=== PATIENT | male | born 1940 | race Caucasian/White ===

== ENCOUNTER 2016-11-08 03:39 | Inpatient (IN) | payer MEDICARE, BC ==
[2016-11-08] MEDS ORDERED: ACETAMINOPHEN 325 MG TABLET PO ONE (04:08)
[2016-11-08 04:17] LABS: BLOOD UREA NITROGEN 19 mg/dL (9-20); CALCIUM 9.1 mg/dL (8.4-10.2); CHLORIDE 99 mmol/L (98-107); CREATININE 1.1 mg/dL (0.7-1.3); EST GLOMERULAR FILTRATION RATE > 60 mL/min; GLUCOSE 109 mg/dL (70-100); POTASSIUM 3.9 mmol/L (3.5-5.1); SODIUM 135 mmol/L (137-145)
[2016-11-08] MEDS ORDERED: AZITHROMYCIN 250 MG TABLET PO ONE ×2 (04:18→04:45)
[2016-11-08] MEDS ORDERED: CEFTRIAXONE SODIUM 1,000 MG/10 ML VIAL ONE (04:18)
[2016-11-08] MEDS ORDERED: IPRATROPIUM/ALBUTEROL 0.5/3 MG 3 ML AMPUL.NEB INHALATION ONE (04:18)
[2016-11-08] MEDS ORDERED: NORMAL SALINE MINI-BAG+ 100 ML IV ONE (04:19)
[2016-11-08 04:21] LABS: BAND% (Manual) 17 % (0.0-1.0); HEMATOCRIT 48.6 % (42.0-54.0); HEMOGLOBIN 16.6 g/dL (14.0-18.0); MEAN CELL VOLUME 89.4 fL (84.0-102.0); MEAN CORPUS. HGB CONCENTRATION 34.1 g/dL (32.0-36.0); MEAN CORPUSCULAR HEMOGLOBIN 30.4 pg (29.0-35.0); MEAN PLATELET VOLUME 7.9 fL (7.4-10.4); NEUTROPHIL % (Manual) 64 % (54.0-75.0); PLATELET COUNT 292 X 10^3uL (130-440); RED BLOOD COUNT 5.44 X 10^6uL (4.20-6.10)
[2016-11-08 04:22] LABS: INFLUENZA A/B INF A & B NEGATIVE; LYMPHOCYTE % (Manual) 10 % (20.0-40.0); PLATELET ESTIMATE ADEQUATE
[2016-11-08] MEDS ORDERED: HOME MEDICATION LIST NEEDED 1 EA EACH MISC ONE (04:45)
[2016-11-08] MEDS ORDERED: FAMOTIDINE IN SALINE, ISO-OSM 50 ML IV ONE (04:49)
[2016-11-08] MEDS ORDERED: IPRATROPIUM/ALBUTEROL 0.5/3 MG 3 ML AMPUL.NEB INHALATION SCH (05:00)
--- NOTE | 2016-11-08 05:21 | ER PHYSICIAN DOCUMENTATION ---
Physician Documentation [facility] Name:Cliff Jain Age:76 yrs Sex:Male :1940 Arrival Date:11/08/2016 Time:03:39 Bed4 Private MD:Emiliano Ricketts ED, Scott Disposition: 11/08/16 04:49 Admit ordered for Emiliano Ricketts. Preliminary diagnosis is Hypoxia. - Bed requested for Medical/Surgical. - Condition is Serious. - Problem is new. - Symptoms have improved. 23 HR OBS No HPI: 11/08 04:12 This 76 yrs old Male presents to ER via EMS with complaints of Fever. sc 04:12 The patient reports fever, not measured (subjective). Onset: The symptom(s)/episode sc began/occurred 3 day(s) ago. Associated signs and symptoms: Pertinent positives: runny nose, sinus congestion, Pertinent negatives: altered mental status, chest pain. Severity of symptoms: At their worst the symptoms were moderate. too weak to get out of bed. Historical: - Allergies: SULFA (SULFONAMIDES); - Home Meds: 1. allopurinol 300 mg oral tab 1 tab once daily 2. Advair Diskus 250-50 mcg/dose inhalation dsdv 1 puff 2 times per day approximately 12 hours apart 3. Albuterol Inhl 4. ipratropium 5. Zantac Oral 6. lorazepam 1 mg oral tab as needed 7. hydrocodone-acetaminophen 10-325 mg oral tab 1 tab every 6 hours as needed for pain 8. prednisone 5 mg oral tab 2 tabs once daily 9. prolia 10. [place] 3 Fish Oil oral cap 11. multivitamin oral 12. Glucosamine oral 13. Vitamin E Oral 14. Mucinex oral - PMHx: GOUT; allergies; ASTHMA; ANXIETY; - PSHx: Cholecysectomy; back; - Tetanus: < 10 years. - Ebola Screening: : No symptoms or risks identified at this time. . - Immunization history: Flu Vaccine < 1 year. - Social history: Smoking status: Patient states former smoker of tobacco. ROS: 04:13 Eyes: Negative for injury, pain, redness, and discharge. sc Neck: Negative for injury, pain, and swelling. Cardiovascular: Negative for chest pain, palpitations, and edema. Respiratory: Negative for shortness of breath, cough, wheezing, and pleuritic chest pain. Abdomen/GI: Negative for abdominal pain, nausea, vomiting, diarrhea, and constipation. Back: Negative for injury and pain. MS/Extremity: Negative for injury and deformity. Skin: Negative for injury, rash, and discoloration. 04:13 Neuro: Negative for headache, weakness, numbness, tingling, and seizure. sc 04:13 Constitutional: Positive for body aches, chills, fatigue, fever. 04:13 ENT: Positive for sinus congestion. Exam: Head/Face: Normocephalic, atraumatic. Eyes: Pupils equal round and reactive to light, extra-ocular motions intact. Lids and lashes normal. Conjunctiva and sclera are non-icteric and not injected. Cornea within normal limits. Periorbital areas with no swelling, redness, or edema. Neck: Trachea midline, no thyromegaly or masses palpated, and no cervical lymphadenopathy. Supple, full range of motion without nuchal rigidity, or vertebral point tenderness. No meningismus. Chest/axilla: Normal chest wall appearance and motion. Nontender with no deformity. No lesions are appreciated. Cardiovascular: Regular rate and rhythm with a normal S1 and S2. No gallops, murmurs, or rubs. Normal PMI, no JVD. No pulse deficits. Abdomen/GI: Soft, non-tender, with normal bowel sounds. No distension or tympany. No guarding or rebound. No evidence of tenderness throughout. Back: No spinal tenderness. No costovertebral tenderness. Full range of motion. Skin: Warm, dry with normal turgor. Normal color with no rashes, no lesions, and no evidence of cellulitis. MS/ Extremity: Pulses equal, no cyanosis. Neurovascular intact. Full, normal range of motion, negative Homans's, calves equal bilaterally. 04:13 Neuro: Awake and alert, GCS 15, oriented to person, place, time, and situation. nj Cranial nerves II-XII grossly intact. Motor strength 5/5 in all extremities. Sensory grossly intact. Cerebellar exam normal. Normal gait. 04:13 Constitutional: The patient appears alert, awake, lethargic. 04:13 ENT: Nose: nasal drainage, that is clear. 04:13 Respiratory: mild respiratory distress is noted, Respirations: tachypnea, that is mild, Breath sounds: rhonchi, that are mild, are scattered. Vital Signs: 03:56 BP 135 / 79; Pulse 114; Resp 24; Temp 101.7; Pulse Ox 85% on 5 lpm NC; Weight 77.11 kg lpr (R); Height 5 ft. 11 in. (180.34 cm); Pain 6/10; 04:29 BP 124 / 68; Pulse 107; Pulse Ox 92% on 5% Simple Mask; tg 03:56 Body Mass Index 23.71 (77.11 kg, 180.34 cm) lpr MDM: 03:47 Patient medically screened. nj 04:14 Differential diagnosis: viral Infection, bacterial infection, URI, bronchitis, sc pneumonia UTI. Data reviewed: vital signs, nurses notes, old medical records, lab test result(s), radiologic studies, and as a result, I will admit patient, administer antibiotics Rocephin, Zithromax, administer IV fluids. Counseling: I had a detailed discussion with the patient and/or guardian regarding: the historical points, exam findings, and any diagnostic results supporting the discharge/admit diagnosis, lab results, radiology results, the need for further work-up and treatment in the hospital. Medication response: The patient's symptoms have improved. 04:47 Physician consultation: Sandra Magallanes MD was called at 04:47, was contacted at nj 04:47, regarding admission, to the floor, and will see patient in inpatient room, shortly. 11/08 04:19 Order name: BASIC METABOLIC PANEL; Complete Time: 04:36 EDMS 11/08 04:34 Interpretation: Normal. nj 11/08 04:21 Order name: LACTATE; Complete Time: 04:36 EDMS 11/08 04:36 Interpretation: Normal. nj 11/08 04:21 Order name: CBC WITHOUT A DIFFERENTIAL; Complete Time: 04:36 EDMS 11/08 04:36 Interpretation: Abnormal: WHITE BLOOD COUNT 23.0. nj 11/08 04:23 Order name: MANUAL DIFFERENTIAL; Complete Time: 04:36 EDMS 11/08 04:36 Interpretation: Abnormal: BAND% (Manual) 17. nj 11/08 04:23 Order name: INFLUENZA A/B; Complete Time: 04:36 EDMS 11/08 04:36 Interpretation: Normal. nj 11/08 04:27 Order name: BNP,NT-PRO; Complete Time: 04:36 EDMS 11/08 04:36 Interpretation: Normal. nj 11/08 03:55 Order name: I & O nj 11/08 03:55 Order name: Oxygen; Complete Time: 04:02 nj 11/08 03:55 Order name: Place Patient On Monitor; Complete Time: 04:02 nj 11/08 03:55 Order name: Pulse Ox Continuous; Complete Time: 04:02 nj 11/08 03:55 Order name: Urine Dip sc Dispensed Medications: 03:55 Drug: NS 0.9% 1000 ml; Route: IV; Rate: bolus; Site: left antecubital; fc 05:18 Follow up: IV Status: Completed infusion; IV Intake: 1000ml tg 04:01 Drug: Acetaminophen 975 mg; Route: PO; lpr 04:45 Follow up: Response: No adverse reaction tg 04:13 Drug: DuoNeb (Albuterol 2.5 mg, Atrovent 0.5 mg); 3 ml; Route: Nebulizer; lpr 04:44 Follow up: Response: No adverse reaction tg 04:13 Drug: azithromycin 500 mg; Route: PO; lpr 04:45 Follow up: Response: No adverse reaction tg 04:13 Drug: Rocephin 1 grams; Route: IVPB; Site: left antecubital; lpr 05:20 Follow up: IV Status: Completed infusion; IV Intake: 100ml tg 04:40 Drug: Pepcid 20 mg; Route: IVPB; Site: left antecubital; fc 05:18 Follow up: IV Status: Completed infusion; IV Intake: 50ml tg Signatures: Cory Corona RN RN tg To Mancuso MD MD nj Gracie Duke RN RN lpr nikki perez fc
--- NOTE | 2016-11-08 05:21 | ER NURSING DOCUMENTATION ---
Nurse's Notes [facility] Name:Cliff Jain Age:76 yrs Sex:Male :1940 Arrival Date:11/08/2016 Time:03:39 Bed4 Private MD:Emiliano Ricketts Diagnosis:Hypoxia Presentation: 11/08 03:52 Presenting complaint: Patient states: sinus drainage and congestion X 3 days. Too weak lpr to get up out of chair tonight. Temperature of 102.7 for EMS. 75% RA sat for EMS. C/O chronic lower back pain. Care prior to arrival: IV initiated. gauge and site 18 gauge RAC Labs. 03:52 Acuity: LATONYA 2 lpr 03:52 Method Of Arrival: EMS: 410 lpr 03:54 Transition of care: Home. lpr Triage Assessment: 03:54 General: Appears uncomfortable, Behavior is cooperative. EENT: Nares with drainage lpr noted. Neuro: Level of Consciousness is awake, alert, obeys commands, Oriented to person, place, time, event. Cardiovascular: Rhythm is sinus tachycardia. Respiratory: Airway is patent Respiratory effort is even, Respiratory pattern is tachypnea. GI: No deficits noted. : No deficits noted. Derm: Skin is intact, is healthy with good turgor, Skin is pink, warm & dry. Musculoskeletal: Circulation, motion, and sensation intact Capillary refill < 3 seconds. 04:03 Pain: Complains of pain in low back area. lpr Historical: - Allergies: SULFA (SULFONAMIDES); - Home Meds: 1. allopurinol 300 mg oral tab 1 tab once daily 2. Advair Diskus 250-50 mcg/dose inhalation dsdv 1 puff 2 times per day approximately 12 hours apart 3. Albuterol Inhl 4. ipratropium 5. Zantac Oral 6. lorazepam 1 mg oral tab as needed 7. hydrocodone-acetaminophen 10-325 mg oral tab 1 tab every 6 hours as needed for pain 8. prednisone 5 mg oral tab 2 tabs once daily 9. prolia 10. [place] 3 Fish Oil oral cap 11. multivitamin oral 12. Glucosamine oral 13. Vitamin E Oral 14. Mucinex oral - PMHx: GOUT; allergies; ASTHMA; ANXIETY; - PSHx: Cholecysectomy; back; - Tetanus: < 10 years. - Ebola Screening: : No symptoms or risks identified at this time. . - Immunization history: Flu Vaccine < 1 year. - Social history: Smoking status: Patient states former smoker of tobacco. Screenin:04 Infectious Disease Risk None. Abuse screen: Denies threats or abuse. Nutritional lpr screening: No deficits noted. Assessment: 04:04 See Triage Assessment done by same RN. lpr Vital Signs: 03:56 BP 135 / 79; Pulse 114; Resp 24; Temp 101.7; Pulse Ox 85% on 5 lpm NC; Weight 77.11 kg lpr (R); Height 5 ft. 11 in. (180.34 cm); Pain 6/10; 04:29 BP 124 / 68; Pulse 107; Pulse Ox 92% on 5% Simple Mask; tg 03:56 Body Mass Index 23.71 (77.11 kg, 180.34 cm) lpr ED Course: 03:42 Inserted saline lock: 18 gauge in left antecubital area. lpr 03:43 Patient arrived in ED. ma1 03:43 Emiliano Ricketts MD is Private Physician. ma1 03:45 First set of blood cultures drawn Second set of blood cultures drawn by millicent Olsen RN. 03:47 To Mancuso MD is Attending Physician. sc 03:52 Port Xray Completed. jane 03:53 Triage completed. lpr 04:04 Valuables Remains with patient Patient has correct armband on for positive lpr identification. Bed in low position. Call light in reach. Side rails up X2. color television console monitor on. Pulse ox on. NIBP on. 04:13 Report given to Ori Corona RN. lpr 04:28 Cory Corona RN is Primary Nurse. tg 04:28 Report received from IRVIN Bowman. tg 04:29 Oxygen Oxygen administration via face mask @ 6L/min. tg 04:47 Emiliano Ricketts MD is Admitting Physician. sc Administered Medications: 03:55 Drug: NS 0.9% 1000 ml; Route: IV; Rate: bolus; Site: left antecubital; fc 05:18 Follow up: IV Status: Completed infusion; IV Intake: 1000ml tg 04:01 Drug: Acetaminophen 975 mg; Route: PO; lpr 04:45 Follow up: Response: No adverse reaction tg 04:13 Drug: DuoNeb (Albuterol 2.5 mg, Atrovent 0.5 mg); 3 ml; Route: Nebulizer; lpr 04:44 Follow up: Response: No adverse reaction tg 04:13 Drug: azithromycin 500 mg; Route: PO; lpr 04:45 Follow up: Response: No adverse reaction tg 04:13 Drug: Rocephin 1 grams; Route: IVPB; Site: left antecubital; lpr 05:20 Follow up: IV Status: Completed infusion; IV Intake: 100ml tg 04:40 Drug: Pepcid 20 mg; Route: IVPB; Site: left antecubital; fc 05:18 Follow up: IV Status: Completed infusion; IV Intake: 50ml tg Intake: 05:18 IV: 1000ml; Total: 1000ml. tg 05:18 IV: 50ml; Total: 1050ml. tg 05:20 IV: 100ml; Total: 1150ml. tg Outcome: 04:49 Decision to Admit by Provider. al 05:18 Admitted to Med/surg accompanied by nurse, family with patient, via stretcher, with tg oxygen. 05:18 Condition: improved 05:18 Discharge Assessment: Patient awake, alert and oriented x 3. No cognitive and/or functional deficits noted. Patient verbalized understanding of disposition instructions. 05:18 Instructed on need to admit 05:20 Patient left the ED. tg Signatures: Cory Corona RN RN tg To Mancuso MD MD sc Roberts, Leslie, RN RN lpr Abbott, Laura lea collins, floyd fc Addison, Melissa ma1
[2016-11-08] MEDS ORDERED: O2 HUMIDIFIER 650 ML BOTTLE INHALATION ONE (05:50)
[2016-11-08] MEDS: CEFTRIAXONE SODIUM 1,000 MG in NORMAL SALINE MINI-BAG+ 100 ML IV SCH (05:51)
[2016-11-08] MEDS ORDERED: HYDROcodone/APAP 10/325 MG 1 TAB TABLET PO ONE (06:00)
[2016-11-08 06:09] LABS: URINE RBC NONE SEEN (0-5/hpf); URINE SQUAMOUS EPITHELIAL CELL NONE SEEN (<= 15/hpf)
[2016-11-08 06:33] LABS: URINE APPEARANCE CLEAR; URINE COLOR AMBER; URINE GLUCOSE NORMAL (NEGATIVE); URINE KETONE 10mg/dL (1+) (NEGATIVE); URINE LEUKOCYTE ESTERASE NEGATIVE (NEGATIVE); URINE NITRITE NEGATIVE (NEGATIVE); URINE PROTEIN 30mg/dL (1+) (NEG - TRACE); URINE SPECIFIC GRAVITY 1.025 (0.001-1.035)
[2016-11-08 06:34] LABS: URINE BACTERIA <10 ORGANISMS/hpf (<10/hpf); URINE BILIRUBIN 0.5 mg/100ml (1+) (NEGATIVE); URINE BLOOD 10 Ery/uL (1+) (NEGATIVE); URINE MUCUS UP TO 25%/lpf (Up to 25%); URINE UROBILINOGEN 0.2mg/dL (Normal) (NEG-1mg/dL)
--- NOTE | 2016-11-08 08:46 | RADIOLOGY REPORT ---
A limited single portable view of the chest is compared with prior film dated 12/2013. The cardiac silhouette is stable. 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 The pulmonary vasculature otherwise appears unremarkable. No infiltrate, fluid or pneumothorax is seen. IMPRESSION: Stable chronic changes. No acute cardiopulmonary abnormality is identified. MTDD
[2016-11-08] MEDS ORDERED: RANITIDINE HCL 75 MG PO PRN (10:33)
[2016-11-08] MEDS ORDERED: NON-FORMULARY MEDICATION (Cetirizine Hcl [Zyrtec] 10 MG) PO SCH (10:45)
[2016-11-08] MEDS ORDERED: NON-FORMULARY MEDICATION (Guaifenesin [Mucinex] 1,200 MG) PO SCH (10:45)
[2016-11-08] MEDS ORDERED: FLUTICASONE/SALMETEROL 250/50 14 INH DISK INHALATION SCH ×2 (10:45→21:00)
[2016-11-08] MEDS ORDERED: PANTOPRAZOLE 40 MG TABLET PO PRN (11:03)
[2016-11-08] MEDS: IPRATROPIUM/ALBUTEROL 0.5/3 MG 3 ML AMPUL.NEB INHALATION SCH ×4 (11:08→23:25)
[2016-11-08] MEDS ORDERED: FLUTICASONE/SALMETEROL 250/50 14 INH DISK INHALATION ONE (11:33)
[2016-11-08] MEDS: METHYLPREDNISOLONE SOD 125 MG/2 ML VIAL IV SCH ×3 (11:42→23:25)
[2016-11-08] MEDS: CALCIUM CARBONATE 500 MG TABLET PO SCH (11:44)
[2016-11-08] MEDS: FEXOFENADINE HCL 180 MG TABLET PO SCH (11:47)
[2016-11-08] MEDS: GUAIFENESIN ER 600 MG TABLET PO SCH ×2 (11:48→20:09)
[2016-11-08] MEDS: ALLOPURINOL 300 MG TABLET PO SCH (11:48)
[2016-11-08] MEDS ORDERED: BENZONATATE 100 MG CAPSULE PO PRN (13:16)
[2016-11-08] MEDS: FLUTICASONE/SALMETEROL 250/50 14 INH DISK INHALATION SCH ×2 (14:19→20:08)
--- NOTE | 2016-11-08 15:23 | HISTORY & PHYSICAL ---
DATE OF ADMISSION: 11/08/16 CHIEF COMPLAINT: Cough. HISTORY OF PRESENT ILLNESS: This is a 76-year-old male who has a several-week history of URI symptoms, that worsened on 11/02/16. Symptoms have progressively worsened, since then, especially last night. At this time he is complaining of fevers and chills, sinus pain and pressure, frontal sinus headache, yellow green coryza, postnasal drainage, productive cough of yellow- green phlegm, shortness of breath, generalized weakness and postnasal drainage. He actually had a fall where he was unable to get up. No sore throat or wheezing. ALLERGIES: Boniva, Reclast, Fosamax. MEDICATIONS Glucosamine chondroitin 1 tablet p.o. b.i.d. Multivitamin 1 tablet p.o. q.day. Fish oil 1000 mg p.o. 3 times per week. Vitamin E 100 IU 3 times per week. Prednisone 10 mg p.o. q.day. Allopurinol 300 mg 5 times per week. Calcium 500 mg 1 tablet p.o. q.day. Zyrtec 10 mg p.o. q.day. Advair 250/50 inhaler, 1 puff b.i.d. Guaifenesin 600 mg p.o. b.i.d. Zebulon 10/325 mg one tablet p.o. b.i.d. p.r.n. Lorazepam 1 mg p.o. q.h.s. Ranitidine 75 mg p.o. b.i.d. PAST MEDICAL HISTORY 1. 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 2. Actinic keratoses. 3. Allergic rhinitis. 4. Generalized osteoarthritis. 5. Asthma. 6. Chronic back pain related to an L3-L4 fusion and not considered a surgical candidate and now with chronic pain syndrome. 7. Chronic sinusitis for which he is on prednisone. 8. CVA with cognitive deficits. Difficulty with multitasking and short-term memory. 9. ED. 10. 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 Bender. 11. Gout. 12. Hypertension. 13. Hyperlipidemia. 14. Insomnia. 15. Osteoporosis of hip and wrist. 16. Right rotator cuff tear. 17. 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 18. Right biceps tendon tear. 19. Cholecystectomy in 1979. 20. Umbilical herniorrhaphy. 21. Rhinoplasty. 22. L3-L4 spine fusion in 2012. SOCIAL HISTORY: , 4 children. Retired oil company management. Quit smoking in 1988. FAMILY HISTORY: Brother with diabetes. Father with CVA and arthritis. Mother with stomach cancer and diabetes. Sister with COPD. REVIEW OF SYSTEMS: No heart, emphysema, kidney, liver, diabetes, thyroid, seizures, peptic ulcer disease, new skin or bleeding disorders. No nocturia. PREVENTIVE HEALTH: TDAP in 2011. Pneumovax in 2009. Prevnar in 2014. Gets annual flu shot. Zostavax in 2007. PHYSICAL EXAMINATION VITAL SIGNS: Blood pressure 135/79, pulse 114, respiratory rate 24, temp 101.7 , pulse oximetry 85% on oxygen at 5 liters per minute by nasal prongs which arjun to 92% on oxygen 5 liters per minute by face mask. GENERAL: Well-developed, well-nourished male, no respiratory distress at the time of my visit. Alert and oriented times 3. HEENT: EOMI. PERRL. Fundi difficult to visualize. Normal conjunctivae. No coryza. Pharynx not injected. NECK: No adenopathy, thyromegaly or bruits. Supple. CHEST: Diminished breath sounds with bibasilar rales. No rhonchi or wheezes. COR: RRR without murmurs, gallops, rubs or clicks. No jugular venous distention. No ectopy. ABDOMEN: Soft, nontender. No hepatosplenomegaly. No masses. No bruits. Bowel sounds present. LOWER EXTREMITIES: No edema, pulses present. NEUROLOGIC: Cranial nerves 2 through 12 are intact. Motor 5/5. Sensory intact. CHEST X-RAY: Normal, reviewed with Radiology. LABORATORY STUDIES: WBC 23.0 with 64 segs, 17 bands, 10 lymphs, 9 atypical lymphs, H&H 16.6/48.6, platelets 292,000. Sodium 135, potassium 3.9, chloride 99, CO2 25, BUN 19, creatinine 1.1, glucose 109, lactic acid 1.6, calcium 9.1. ProBNP 235. Quick flu negative. Urinalysis: Specific gravity 1.025, 1+ protein, 1+ ketones, 1+ blood, 1+ bilirubin, otherwise negative. Micro shows 5- 10 WBCs, no RBCs, otherwise negative. ASSESSMENT 1. Clinical pneumonia with bibasilar rales, productive cough, fevers, leukocytosis, and profound hypoxia. 2. Acute sinusitis. 3. Profound hypoxia. 4. Asthma, no evidence of exacerbation at this time. PLAN 1. Blood cultures, sputum cultures and urine cultures pending. 2. Repeat lab work in a.m. 3. Full code status. 4. Oxygen at 5 liters per minute by nasal prongs which has been titrated down to 3 liters per minute at this time. 5. DuoNeb updrafts q.4h. 6. Solu-Medrol 60 mg IV q.6h. 7. Mucinex 1200 mg p.o. b.i.d. 8. Rocephin 1 g IV q.24 hours and Z-Zach. MTDD
[2016-11-08] MEDS: HYDROcodone/APAP 10/325 MG 1 TAB TABLET PO PRN (17:51)
[2016-11-08] MEDS ORDERED: GUAIFENESIN ER 600 MG TABLET PO SCH (21:00)
[2016-11-08] MEDS ORDERED: LORazepam 1 MG TABLET PO SCH (21:00)
[2016-11-09] MEDS ORDERED: FLUTICASONE/SALMETEROL 250/50 14 INH DISK INHALATION SCH
[2016-11-09] MEDS: IPRATROPIUM/ALBUTEROL 0.5/3 MG 3 ML AMPUL.NEB INHALATION SCH ×3 (05:33→11:44)
[2016-11-09] MEDS: CEFTRIAXONE SODIUM 1,000 MG in NORMAL SALINE MINI-BAG+ 100 ML IV SCH (05:34)
[2016-11-09] MEDS: METHYLPREDNISOLONE SOD 125 MG/2 ML VIAL IV SCH ×2 (05:34→10:42)
[2016-11-09] MEDS: HYDROcodone/APAP 10/325 MG 1 TAB TABLET PO PRN (06:15)
[2016-11-09 06:29] LABS: HEMATOCRIT 42.1 % (42.0-54.0); MEAN CELL VOLUME 89.9 fL (80.0-100.0); MEAN CORPUS. HGB CONCENTRATION 33.2 g/dL (32.0-36.0); MEAN CORPUSCULAR HEMOGLOBIN 29.8 pg (29.0-35.0); MEAN PLATELET VOLUME 7.8 fL (7.4-10.4); PLATELET COUNT 273 X 10^3uL (130-440); RED BLOOD COUNT 4.69 X 10^6uL (4.20-6.10); RED CELL DISTRIBUTION WIDTH 12.9 % (11.5-14.5); WHITE BLOOD COUNT 15.6 X 10^3uL (3.9-10.7)
[2016-11-09] MEDS ORDERED: PANTOPRAZOLE 40 MG TABLET PO SCH (06:30)
[2016-11-09 06:34] LABS: A/G RATIO 1.3; ALBUMIN 3.6 g/dL (3.5-5.0); ALKALINE PHOSPHATASE 78 U/L (38-126); ALT 45 U/L (21-72); AST 31 U/L (17-59); BLOOD UREA NITROGEN 21 mg/dL (9-20); CALCIUM 9.1 mg/dL (8.4-10.2); CHLORIDE 106 mmol/L (98-107); CREATININE 0.9 mg/dL (0.7-1.3); EST GLOMERULAR FILTRATION RATE > 60 mL/min; SODIUM 139 mmol/L (137-145); TOTAL PROTEIN 6.4 g/dL (6.3-8.2)
[2016-11-09 06:40] LABS: GLUCOSE 218 mg/dL (70-100)
[2016-11-09 07:14] LABS: BAND% (Manual) 14 % (0.0-1.0); BASOPHIL % (Manual) 0 % (0.0-2.0); EOSINOPHIL % (Manual) 0 % (0.0-6.0); LYMPHOCYTE % (Manual) 2 % (20.0-40.0); METAMYELOCYTE % (Manual) 0 % (0); MONOCYTE % (Manual) 0 % (2.0-10.0); MYELOCYTE % (Manual) 0 % (0); NEUTROPHIL % (Manual) 84 % (54.0-75.0); PROMYELOCYTE % (Manual) 0 % (0)
[2016-11-09 07:16] LABS: NUCLEATED RED BLOOD CELL 0 #/100WBC (0-0); PLASMA CELL % (Manual) 0 (0); PLATELET ESTIMATE ADEQUATE
--- NOTE | 2016-11-09 08:26 | PROGRESS NOTE: IM SOAP ---
IM: PN Subjective Interval history: Feeling dramatically better. No F/C/ cough/ SOB Pt would like to go home IM: PN Objective Exam - I&O/Vital Signs I&O: Intake & Output 11/08/16 11/09/16 11/09/16 21:59 05:59 13:59 Intake Total 900 Balance 900 Intake: Oral 900 Other: Urine Appearance Clear Urine Color Light Rima Stool Characteristics Formed Voiding Method Urinal Toilet # Voids 2 # Bowel Movements 3 Vital Signs: Last Vital Signs Temp 36.6 C 11/09/16 06:28 Pulse 92 H 11/09/16 06:28 Resp 15 11/09/16 06:28 BP 133/75 11/09/16 06:28 Pulse Ox 92 11/09/16 06:28 Oxygen Flow Rate 3 Oxygen Delivery Method Nasal Cannula - Respiratory Respiratory exam: Absent: rales, rhonchi, wheezes - Cardiovascular Cardiovascular exam: Present: RRR. Absent: systolic murmur - GI/Abdominal GI/Abdominal exam: Present: soft. Absent: tenderness - Extremities Exam Extremities exam: Absent: calf tenderness, edema - Lab Labs: Laboratory Last Values WBC 15.6 X 10^3uL (3.9-10.7) H 11/09/16 05:05 RBC 4.69 X 10^6uL (4.20-6.10) 11/09/16 05:05 Hgb 14.0 g/dL (14.0-18.0) 11/09/16 05:05 Hct 42.1 % (42.0-54.0) 11/09/16 05:05 MCV 89.9 fL (80.0-100.0) 11/09/16 05:05 MCH 29.8 pg (29.0-35.0) 11/09/16 05:05 MCHC 33.2 g/dL (32.0-36.0) 11/09/16 05:05 RDW 12.9 % (11.5-14.5) 11/09/16 05:05 Plt Count 273 X 10^3uL (130-440) 11/09/16 05:05 MPV 7.8 fL (7.4-10.4) 11/09/16 05:05 Total Counted 100 11/09/16 05:05 Neutrophils % Cancelled 11/08/16 03:45 Neutrophils % (Manual) 84 % (54.0-75.0) H 11/09/16 05:05 Band Neuts % (Manual) 14 % (0.0-1.0) H 11/09/16 05:05 Lymphocytes % Cancelled 11/08/16 03:45 Lymphocytes % (Manual) 2 % (20.0-40.0) L 11/09/16 05:05 Atypical Lymphs % (Man) 0 % 11/09/16 05:05 Monocytes % (Manual) 0 % (2.0-10.0) L 11/09/16 05:05 Eosinophils % Cancelled 11/08/16 03:45 Eosinophils % (Manual) 0 % (0.0-6.0) 11/09/16 05:05 Basophils % Cancelled 11/08/16 03:45 Basophils % (Manual) 0 % (0.0-2.0) 11/09/16 05:05 Metamyelocytes % (Man) 0 % (0) 11/09/16 05:05 Myelocytes % (Man) 0 % (0) 11/09/16 05:05 Promyelocytes % (Man) 0 % (0) 11/09/16 05:05 Blast Cells % (Manual) 0 % (0) 11/09/16 05:05 Plasma Cell % (Manual) 0 (0) 11/09/16 05:05 Neutrophils # Cancelled 11/08/16 03:45 Lymphocytes # Cancelled 11/08/16 03:45 Monocytes Cancelled 11/08/16 03:45 Monocytes # Cancelled 11/08/16 03:45 Eosinophils # Cancelled 11/08/16 03:45 Basophils # Cancelled 11/08/16 03:45 Nucleated RBCs 0 #/100WBC (0-0) 11/09/16 05:05 Platelet Estimate Adequate 11/09/16 05:05 Anisocytosis 10-19% of cells 11/08/16 03:45 Sodium 139 mmol/L (137-145) 11/09/16 05:05 Potassium 4.0 mmol/L (3.5-5.1) 11/09/16 05:05 Chloride 106 mmol/L (98-107) 11/09/16 05:05 Carbon Dioxide 22 mmol/L (22-30) 11/09/16 05:05 BUN 21 mg/dL (9-20) H 11/09/16 05:05 Creatinine 0.9 mg/dL (0.7-1.3) 11/09/16 05:05 GFR Calculation > 60 mL/min 11/09/16 05:05 Glucose 218 mg/dL (70-100) H 11/09/16 05:05 Lactic Acid 1.6 mmol/L (0.7-2.1) 11/08/16 04:00 Calcium 9.1 mg/dL (8.4-10.2) 11/09/16 05:05 Total Bilirubin 1.0 mg/dL (0.2-1.3) 11/09/16 05:05 AST 31 U/L (17-59) 11/09/16 05:05 ALT 45 U/L (21-72) 11/09/16 05:05 Alkaline Phosphatase 78 U/L (38-126) 11/09/16 05:05 NT-Pro-B Natriuret Pep 235 pg/mL (<450) 11/08/16 03:45 Total Protein 6.4 g/dL (6.3-8.2) 11/09/16 05:05 Albumin 3.6 g/dL (3.5-5.0) 11/09/16 05:05 Albumin/Globulin Ratio 1.3 11/09/16 05:05 Urine Color Rima A 11/08/16 05:37 Urine Appearance Clear 11/08/16 05:37 Urine pH 5.0 (5-7) 11/08/16 05:37 Ur Specific [place] 1.025 (0.001-1.035) 11/08/16 05:37 Urine Protein 30mg/dl (1+) (NEG - TRACE) A 11/08/16 05:37 Urine Ketones 10mg/dl (1+) (NEGATIVE) A 11/08/16 05:37 Urine Blood 10 neli/ul (1+) (NEGATIVE) A 11/08/16 05:37 Urine Nitrate Negative (NEGATIVE) 11/08/16 05:37 Urine Bilirubin 0.5 mg/100ml (1+) (NEGATIVE) A 11/08/16 05:37 Urine Urobilinogen 0.2mg/dl (normal) (NEG-1mg/dL) 11/08/16 05:37 Ur Leukocyte Esterase Negative (NEGATIVE) 11/08/16 05:37 Urine RBC None seen (0-5/hpf) 11/08/16 05:37 Urine WBC 5-10/hpf (0-4/hpf) 11/08/16 05:37 Ur Squamous Epith Cells None seen (<= 15/hpf) 11/08/16 05:37 Urine Bacteria <10 organisms/hpf (<10/hpf) 11/08/16 05:37 Urine Mucus Up to 25%/lpf (Up to 25%) 11/08/16 05:37 Urine Glucose Normal (NEGATIVE) 11/08/16 05:37 Influenza Types A,B Ag Inf a & b negative 11/08/16 03:45 Assessment and Plan - Date of Encounter Date of Encounter: 11/09/16 (1) Clinical Pneumonia Status: Acute Assessment and plan: Rocephin, Zpack, Duoneb updrafts, guaifenesin, solu-medrol RA Doing better D/C Home Current Visit: Yes (2) Hypoxia Status: Acute Assessment and plan: O2 has improved from 5 l/min to 3 l/min Check daily RA pulse ox Current Visit: Yes (3) Acute sinusitis Status: Acute Current Visit: Yes (4) Asthma Status: Acute Current Visit: Yes - Time Spent With Patient Total time spent with greater than 50% in coordination of care (as documented) at patient's floor/unit and/or counseling patient: Quality Questions - VTE Prophylaxis Assessment VTE Present on Admission?: No Patient at risk for venous thromboembolism?: No VTE Risk Level: Low Risk VTE Medical Contraindication: Treatment not indicated
[2016-11-09] MEDS: GUAIFENESIN ER 600 MG TABLET PO SCH (08:47)
[2016-11-09] MEDS: FEXOFENADINE HCL 180 MG TABLET PO SCH (08:47)
[2016-11-09] MEDS: FLUTICASONE/SALMETEROL 250/50 14 INH DISK INHALATION SCH (08:47)
[2016-11-09] MEDS: CALCIUM CARBONATE 500 MG TABLET PO SCH (08:47)
[2016-11-09] MEDS ORDERED: CALCIUM CARBONATE 500 MG TABLET PO SCH ×2 (09:00)
[2016-11-09] MEDS ORDERED: FEXOFENADINE HCL 180 MG TABLET PO SCH (09:00)
[2016-11-09] MEDS: ALLOPURINOL 300 MG TABLET PO SCH (10:42)
[2016-11-09 10:59] VITALS: BP 138/80; PULSE 105; RESP 16; TEMP 97.6
[2016-11-09 12:29] VITALS: O2SAT 89
--- NOTE | 2016-11-09 16:02 | DISCHARGE SUMMARY ---
DATE OF DISCHARGE: 11/09/16 DIAGNOSES 1. Clinical pneumonia. 2. Profound hypoxia, resolved. 3. Acute sinusitis. 4. Asthma, without exacerbation. HISTORY OF PRESENT ILLNESS: This is a 76-year-old male who has a several week history of URI symptoms, that worsened on 11/02/16. Symptoms have progressively worsened since then, especially the night prior to admission. At the time of admission, he was complaining of fevers, chills, sinus pain and pressure, frontal sinus headache, yellow-green coryza, postnasal drainage, productive cough of yellow-green phlegm, shortness of breath, generalized weakness and postnasal drainage. He actually had a fall where he was unable to get up the day of admission. No sore throat or wheezing. Please see previously dictated history and physical for further details. HOSPITAL COURSE: The patient was admitted with clinical pneumonia with bibasilar rales, productive cough, fever, leukocytosis and profound hypoxia. In addition, he had acute sinusitis. He was started on Rocephin 1 g IV q.24 hours and a Z-Zach, Solu-Medrol 60 mg IV q.6h, DuoNeb updraft treatments q.4 hours, Mucinex 1200 mg p.o. b.i.d. and oxygen at 5 liters per minute by nasal prongs. The patient responded quickly to treatment, by the time he was discharged, he was back on room air. Lungs were clear to auscultation. He felt dramatically better. Blood, urine and sputum cultures are pending. Repeat lab work showed improved WBC count from 23.0 down to 15.6, but with persistent left shift. QuickFlu was negative. At the time of discharge, while we recommended that patient stay an extra day, the patient was clinically improving, and the patient strongly desired to be discharged home today as opposed to waiting an additional day. DISCHARGE INSTRUCTIONS: The patient may participate in activities as able. He is on a regular diet. He will have a followup appointment with Dr. aJcobs in 3 days, with chest x-ray and lab work prior to visit. DISCHARGE MEDICATIONS Levaquin 750 mg p.o. q.day times 5 days. Mucinex 1200 mg p.o. b.i.d. Advair 250/50 inhaler one puff b.i.d. Lorazepam 1 mg p.o. at bedtime. Calcium 500 mg one tablet p.o. q.day. Prednisone 20 mg p.o. taper, 3 tablets q.day for 3 days, 2 tablets q.day for 2 days, 1 tablet q.day for 3 days. Once he has completed the taper he will resume his usual dose of prednisone 10 mg p.o. q.day. Fish oil 1000 mg p.o. 3 times per week. Glucosamine chondroitin 1 tablet p.o. b.i.d. Hydrocodone./APAP , one tablet p.o. b.i.d. p.r.n. Multivitamin 1 tablet p.o. q.day. Vitamin E 100 IU p.o. 3 times per week. Ranitidine 75 mg p.o. b.i.d. p.r.n. Allopurinol 300 mg 5 times per week. Zyrtec 10 mg p.o. q.day. MTDD
== END 2016-11-09 13:35 | disposition home or self-care (01) | DRG 194 ==
LOC: ER 03:39 → IN 05:07
PROVIDERS: ADMIT Internal Medicine; ATTEND Family Medicine
DX: J18.8 Other pneumonia, unspecified organism (principal); J01.90 Acute sinusitis, unspecified; J45.998 Other asthma; R09.02 Hypoxemia; I10 Essential (primary) hypertension; E78.5 Hyperlipidemia, unspecified; M10.9 Gout, unspecified; I69.311 Memory deficit following cerebral infarction; M15.9 Polyosteoarthritis, unspecified; R76.9 Abnormal immunological finding in serum, unspecified; E27.3 Drug-induced adrenocortical insufficiency; T38.0X5D Adverse effect of glucocorticoids and synthetic analogues, subsequent encounter; G47.00 Insomnia, unspecified; M54.5 Low back pain; M81.0 Age-related osteoporosis without current pathological fracture; Z79.899 Other long term (current) drug therapy; Z79.52 Long term (current) use of systemic steroids; Z74.3 Need for continuous supervision
CPT/HCPCS: 36415; 71010; 80048; 80053; 81001; 83605; 83880; 85007; 85027; 87040; 87086; 87449; 94640; 96365; 96367; 96368; 99285; A0425; A0427; E0555; J0696; J2930; J7620; Q0144

== ENCOUNTER 2016-12-21 16:46 | Emergency (ER) | payer MEDICARE, BC ==
[2016-12-21] MEDS ORDERED: HYDROmorphone HCL 1 MG/ML SYR ONE (17:22)
--- NOTE | 2016-12-21 17:45 | ER NURSING DOCUMENTATION ---
Nurse's Notes [facility] Name:Cliff Jain Age:76 yrs Sex:Male :1940 Arrival Date:12/21/2016 Time:16:46 Bed6 Private MD:John Jacobs Diagnosis:Chronic Back Pain;Acute Back Pain Presentation: 12/21 16:48 Acuity: LATONYA 4 st 16:50 Presenting complaint: Patient states: Pt has had back problems in the past today he was rh having a PT session for the pain, however that made the back pain far worse. PT was done this AM at 0930, pt states he cannot move now without extreme pain. Transition of care: [facility]. 16:50 Method Of Arrival: Private Vehicle Triage Assessment: 16:53 General: Appears in no apparent distress, uncomfortable, Behavior is cooperative. Pain: rh Complains of pain in left low back and right low back Pain radiates to right leg and left leg Quality of pain is described as aching, stabbing. EENT: Oral mucosa is moist. Neuro: Level of Consciousness is awake, alert, obeys commands, Oriented to person, place, time, event. Cardiovascular: Capillary refill < 3 seconds. Respiratory: Airway is patent. Derm: Skin is intact, is healthy with good turgor, Skin is pink, warm & dry. Musculoskeletal: Circulation, motion, and sensation intact Capillary refill < 3 seconds. Historical: - Allergies: Reclast; Fosamax; Boniva; - Home Meds: 1. ipratropium-albuterol inhl 2. prednisone 5 mg oral tab 2 tabs once daily 3. [place] Oral 4. lorazepam 1 mg oral tab as needed 5. allopurinol 300 mg oral tab 1 tab once daily 6. Advair Diskus 250-50 mcg/dose inhalation dsdv 1 puff 2 times per day approximately 12 hours apart 7. Prolia subcutaneous 8. Staxyn oral 9. pro air 10. tizanidine oral 11. Vitamin E Oral 12. Nasalcrom Nasal 13. Zyrtec Oral 14. Mesnex oral - PMHx: GOUT; ASTHMA; ANXIETY; - PSHx: CHOLECYSECTOMY; back; - Tetanus: < 10 years. - Ebola Screening: : Patient negative for fever greater than or equal to 101.5 degrees Fahrenheit, and additional compatible Ebola Virus Disease symptoms. - Immunization history: Flu Vaccine < 1 year. - Social history: Smoking status: Patient states former smoker of tobacco. Screenin:55 Infectious Disease Risk None. Abuse screen: Denies threats or abuse. Denies injuries rh from another. Nutritional screening: No deficits noted. Assessment: 16:55 See Triage Assessment done by same RN. 17:32 Reassessment: PT is able to lift his legs off of the bed and touch his heel to his knee rh bilaterallt. . Vital Signs: 16:55 BP 164 / 99; Pulse 103; Resp 16; Temp 97.3(O); Pulse Ox 93% on R/A; Weight 77.11 kg; rh Height 5 ft. 11 in. (180.34 cm); Pain 10/10; 16:55 Body Mass Index 23.71 (77.11 kg, 180.34 cm) ED Course: 16:47 Patient arrived in ED. ama 16:47 John Jacobs MD is Private Physician. ama 16:48 Triage completed. 16:50 Leena Nix is Primary Nurse. 16:55 Notified ED Physician of patient's arrival and chief complaint. Dr. Serrato notified. 16:55 Valuables Remains with patient Patient has correct armband on for positive rh identification. Placed in gown. Side rails up X 1. 16:59 Shan Serrato MD is Attending Physician. 17:38 John Jacobs MD is Referral Physician. Administered Medications: 17:15 Drug: Dilaudid 1 mg; Route: IM; Site: left deltoid; 17:32 Follow up: Response: Pain is decreased 17:44 Follow up: Response: Marked relief of symptoms rh Outcome: 17:38 Discharge ordered by . 17:44 Discharged to home ambulatory, with significant other. 17:44 Condition: improved 17:44 Discharge Assessment: Patient awake, alert and oriented x 3. No cognitive and/or functional deficits noted. Patient verbalized understanding of disposition instructions. 17:44 Discharge instructions given to patient, significant other, Instructed on discharge instructions, follow up and referral plans. medication usage, no drinking with medication, no driving heavy equipment, Demonstrated understanding of instructions, medications, Prescriptions given X 1. 17:44 Patient left the ED. rh Signatures: Twombly, Summer, Shan Good RN, MD MD jm Averdick, Andrew, Leena Jamil
--- NOTE | 2016-12-21 17:45 | ER PHYSICIAN DOCUMENTATION ---
Physician Documentation [facility] Name:Cliff Jain Age:76 yrs Sex:Male :1940 Arrival Date:12/21/2016 Time:16:46 Bed6 Private MD:John Jacobs EDRojelioShan Disposition: 12/21/16 17:38 Discharged to Home/Self Care. Impression: Chronic Back Pain, Acute Back Pain. - Condition is Good. - Discharge Instructions: BACK PAIN (Acute or Chronic). - Prescriptions for oxycodone 5 mg Oral tablet - take 1 tablet by ORAL route every 4 hours as needed for back pain; 30 tablet. - Medical Reconciliation form form. - Follow up: John Jacobs MD; When: 4- 6 days; Reason: Continuance of care. - Problem is an ongoing problem. - Symptoms have improved. HPI: 12/21 18:30 This 76 yrs old Male presents to ER via Private Vehicle with complaints of jm Back Pain. 18:30 The patient presents with pain that is acute, that is chronic. The symptoms are located jm in the low back. Onset: The symptoms/episode began/occurred yesterday, and became worse today. The pain radiates down the patient's left lower extremity, down the patient's right lower extremity. The problem was sustained Physical Therapy that was done yesterday. Pt woke up today and was worse off. He went see Treva in clinic, but she realized how much pain he was in, so she sent him here. Pt is requesting a pain shot. . Modifying factors: the patient symptoms are aggravated by any movement. Historical: - Allergies: Reclast; Fosamax; Boniva; - Home Meds: 1. ipratropium-albuterol inhl 2. prednisone 5 mg oral tab 2 tabs once daily 3. [place] Oral 4. lorazepam 1 mg oral tab as needed 5. allopurinol 300 mg oral tab 1 tab once daily 6. Advair Diskus 250-50 mcg/dose inhalation dsdv 1 puff 2 times per day approximately 12 hours apart 7. Prolia subcutaneous 8. Staxyn oral 9. pro air 10. tizanidine oral 11. Vitamin E Oral 12. Nasalcrom Nasal 13. Zyrtec Oral 14. Mesnex oral - PMHx: GOUT; ASTHMA; ANXIETY; - PSHx: CHOLECYSECTOMY; back; - Tetanus: < 10 years. - Ebola Screening: : Patient negative for fever greater than or equal to 101.5 degrees Fahrenheit, and additional compatible Ebola Virus Disease symptoms. - Immunization history: Flu Vaccine < 1 year. - Social history: Smoking status: Patient states former smoker of tobacco. ROS: 18:30 Back: Positive for pain at rest, pain with movement, radiated pain. jm 18:30 MS/extremity: Positive for tingling. 18:30 Neuro: Negative for numbness. Exam: 18:30 Constitutional: The patient appears alert, awake, comfortable. jm 18:30 Back: pain, that is mild, of the lumbar area, CVA tenderness, is absent. 18:30 Neuro: Motor: strength is 5/5 in all extremities, Sensation: is normal, Gait: is steady, Deep tendon reflexes are 1 (trace) + in the right patellar and left patellar. Vital Signs: 16:55 BP 164 / 99; Pulse 103; Resp 16; Temp 97.3(O); Pulse Ox 93% on R/A; Weight 77.11 kg; rh Height 5 ft. 11 in. (180.34 cm); Pain 10/10; 16:55 Body Mass Index 23.71 (77.11 kg, 180.34 cm) rh MDM: 16:59 Patient medically screened. 18:33 Differential diagnosis: acute on chronic pain after PT. Data reviewed: vital signs, nurses notes, old medical records, and as a result, I will discharge patient. Counseling: I had a detailed discussion with the patient and/or guardian regarding: the historical points, exam findings, and any diagnostic results supporting the discharge/admit diagnosis, the need for outpatient follow up, with the patient's primary care provider. Medication response: Dilaudid. Response to treatment: the patient's symptoms have markedly improved after treatment. ED course: PT wants to do a jig after receiving Dilaudid which greatly helped pain. Will send home w oxycodone since the Vicodin has not helped at all. . Dispensed Medications: 17:15 Drug: Dilaudid 1 mg; Route: IM; Site: left deltoid; rh 17:32 Follow up: Response: Pain is decreased rh 17:44 Follow up: Response: Marked relief of symptoms rh Signatures: Yenny Saleh, Shan Good RN, MD MD jm Hofsess, Rachel rh
== END 2016-12-21 17:44 | disposition home or self-care (01) ==
LOC: ER 16:46
DX: M54.5 Low back pain (principal); G89.29 Other chronic pain; M54.16 Radiculopathy, lumbar region; Z79.899 Other long term (current) drug therapy
CPT/HCPCS: 96372; 99282; 99283; J1170

== ENCOUNTER 2017-03-19 03:49 | Observation (INO) | payer MEDICARE, BC ==
--- NOTE | 2017-03-19 05:10 | CT REPORT ---
HISTORY: Lower back pain. COMPARISON: Lumbar spine MRI from 12/27/2016, lumbar spine CT from 01/02/2017. TECHNIQUE: This examination was performed using automated exposure control, adjustment of mA or kV according to patient size, and/or use of iterative reconstruction technique. Axial thin section images were obtai mega from L1 through S1 levels, with sagittal and coronal reformations. FINDINGS: Since the prior scan, there has been removal of the L5 fusion hardware with placement of L2 -L4 fusio n hardware including dual paraspinal rods and transpedicular screws as well as L2 laminectomy. There is also been interval kyphoplasty at L2. There is persistent osseous fusion at L3-L4 and partial osseous fusion at L4-L5 with the disc space d evice place at L2-L3. Minimal retrolisthesis of L2 on L3 is grossly unchanged. Otherwise alignment is anatomic. Again seen is a posterior disc osteophyte complex at L4-L5 causing mild spinal canal stenosis as well as bilateral left greater than right neural foraminal narrowing. There is no fracture. Alignment is normal. There is atherosclerotic calcification in the aorta, no other gross soft tissue abnormality. IMPRESSION: 1. Since the prior scan, there has been removal of the L5 fusion hardware with placement of L2 -L4 f usion hardware including dual paraspinal rods and transpedicular screws. No CT evidence of hardware f ailure. 2. Interval kyphoplasty and laminectomy at L2. 3. No evidence of acute fractures. Final Electronic Signature: This report was electronically signed by Jose Antonio Sinclair MD on 03/19/2017 5:08 AM. renata /
[2017-03-19] MEDS ORDERED: DIAZEPAM 10 MG/2 ML SYR ONE (05:32)
[2017-03-19] MEDS ORDERED: ACETAMINOPHEN 325 MG TABLET PO PRN (07:06)
[2017-03-19] MEDS ORDERED: NALOXONE HCL 0.4 MG/ML VIAL IV PRN ×3 (07:06→10:45)
[2017-03-19] MEDS ORDERED: HOME MEDICATION LIST NEEDED 1 EA EACH MC ONE (07:06)
--- NOTE | 2017-03-19 07:53 | ER PHYSICIAN DOCUMENTATION ---
Physician Documentation [facility] Name:Cliff Jain Age:76 yrs Sex:Male :1940 Arrival Date:03/19/2017 Time:03:49 Bed4 Private MD:John Jacobs ED, John Disposition: 03/19/17 06:52 Admit ordered for Vishal Kolb. Preliminary diagnosis is Acute Back Pain. - Bed requested for Medical/Surgical. - Condition is Fair. - Problem is new. - Symptoms are unchanged. 23 HR OBS Yes HPI: 03/19 06:18 This 76 yrs old Male presents to ER via EMS with complaints of Back Pain. 06:18 The patient presents with pain that is acute, that is chronic. The symptoms are located jm in the low back. Onset: The symptoms/episode began/occurred today. The pain does not radiate. Associated signs and symptoms: Pertinent negatives: numbness. The problem was sustained yard work. Modifying factors: the patient symptoms are aggravated by any movement. Severity of symptoms: in the emergency department the symptoms a " 10" out of "10". The patient has experienced similar episodes in the past. The patient has not recently seen a physician. Pt here for back pain. He's had multiple back surgeries. The last being in December this year. Pt presents w acute pain. Pt was driving in metal posts into the ground 2 days ago and woke up the next day sore, but able to get around. Historical: - Allergies: Reclast; Fosamax; Boniva; SULFA (SULFONAMIDES); - Home Meds: 1. ipratropium-albuterol inhl 2. prednisone 5 mg oral tab 2 tabs once daily 3. [place] Oral 4. lorazepam 1 mg oral tab as needed 5. allopurinol 300 mg oral tab 1 tab once daily 6. Advair Diskus 250-50 mcg/dose inhalation dsdv 1 puff 2 times per day approximately 12 hours apart 7. Prolia subcutaneous 8. Vitamin E Oral 9. Mesnex oral 10. Zyrtec Oral - Tetanus: < 10 years. - Ebola Screening: : Patient negative for fever greater than or equal to 101.5 degrees Fahrenheit, and additional compatible Ebola Virus Disease symptoms. Patient denies exposure to infectious person. Patient denies travel to an Ebola-affected area in the 21 days before illness onset. No symptoms or risks identified at this time. . - Immunization history: Flu Vaccine None. - Social history: Smoking status: Patient states was never smoker of tobacco. ROS: 06:33 Constitutional: Negative for fever, malaise. jm 06:33 ENT: Negative for rhinorrhea, sinus congestion, sinus pain, sore throat. 06:33 Cardiovascular: Negative for chest pain, palpitations. 06:33 Respiratory: Negative for cough, shortness of breath. 06:33 Abdomen/GI: Negative for abdominal pain, nausea, vomiting. 06:33 Back: Positive for injury or acute deformity, pain with movement, Negative for radiated pain. 06:33 MS/extremity: Negative for swelling, tenderness. 06:33 Skin: Negative for rash. 06:33 Neuro: Negative for numbness, tingling. 06:33 Psych: Negative for anxiety, depression. 06:33 All other systems are negative. Exam: 06:34 Constitutional: The patient appears alert, awake, in obvious distress, mildly jm distressed. 06:34 Eyes: Periorbital structures: appear normal, Conjunctiva: normal. 06:34 Neck: Thyroid: appears normal, Trachea: is midline with no obvious abnormalities. 06:34 Cardiovascular: Rate: normal, Rhythm: regular. 06:40 Respiratory: the patient does not display signs of respiratory distress, Breath jm sounds: are normal. 06:40 Abdomen/GI: Bowel sounds: normal, Palpation: abdomen is soft and non-tender. 06:40 Back: pain, that is moderate, of the lumbar area, CVA tenderness, is absent. 06:40 : CVA tenderness, is absent, Bladder: distension, is not appreciated. 06:40 Musculoskeletal/extremity: ROM: intact in all extremities, Circulation is intact in all extremities. 06:40 Neuro: Motor: PT has good lower extremity strength, but limited by some back pain. , Sensation: is normal, Gait: not tested. Deep tendon reflexes are 1 (trace) + in the right patellar and left patellar. 06:40 Psych: Behavior/mood is pleasant, cooperative, Affect is calm. Vital Signs: 03:54 BP 150 / 80; Pulse 93; Resp 20; Temp 99.1; Pulse Ox 94% on R/A; Weight 77.11 kg; Height mv 5 ft. 11 in. (180.34 cm); Pain /; 07:06 BP 144 / 68; Pulse 84; Resp 18; Pulse Ox 97% ; bw2 03:54 Body Mass Index 23.71 (77.11 kg, 180.34 cm) mv MDM: 04:00 Patient medically screened. 06:40 Differential diagnosis: Fracture chronic pain. 06:51 Data reviewed: vital signs, nurses notes, radiologic studies, and as a result, I will jm admit patient. Counseling: I had a detailed discussion with the patient and/or guardian regarding: the historical points, exam findings, and any diagnostic results supporting the discharge/admit diagnosis, radiology results, the need for further work-up and treatment in the hospital. Medication response: The patient's symptoms are unchanged despite medication administration, Dilaudid. Physician consultation: Madeleine Baker MD was called at 06:51, was contacted at 06:51, regarding admission, would like admission per Dr. Vishal Kolb MD. 03/19 10:28 Order name: COMPREHENSIVE METABOLIC PANEL [facility] 03/19 10:29 Order name: CBC AUTO DIF, MDIF/RMOR IF IND [facility] 03/19 14:10 Order name: UA W/ MICRO -CULTURE IF IND [facility] 03/20 10:34 Order name: CBC AUTO DIF, MDIF/RMOR IF IND [facility] 03/20 11:14 Order name: BASIC METABOLIC PANEL [facility] 03/21 06:38 Order name: BASIC METABOLIC PANEL [facility] 03/21 06:51 Order name: CBC AUTO DIF, MDIF/RMOR IF IND [facility] 03/19 05:12 Order name: CAT SCAN; LUMBAR W/O CON [id number] [facility] 03/19 04:09 Order name: Pulse Ox Spot Check; Complete Time: 04:14 Dispensed Medications: 04:13 Drug: Dilaudid 1 mg; Route: IVP; Site: right antecubital; bw2 04:27 Follow up: Response: Pain is decreased bw2 05:23 Drug: Valium 5 mg; Route: IVP; Site: right antecubital; bw2 06:55 Follow up: Response: No adverse reaction bw2 05:23 Drug: Dilaudid 0.5 mg; Route: IVP; Site: right antecubital; bw2 06:55 Follow up: Response: No adverse reaction bw2 06:38 Drug: Dilaudid 1 mg; Route: IVP; Site: right antecubital; mv 06:55 Follow up: Response: No adverse reaction bw2 Signatures: Shan Serrato MD MD jm vogel, margaux mv Wisely, Beth bw2
--- NOTE | 2017-03-19 07:53 | ER NURSING DOCUMENTATION ---
Nurse's Notes [facility] Name:Cliff Jain Age:76 yrs Sex:Male :1940 Arrival Date:03/19/2017 Time:03:49 Bed4 Private MD:John Jacobs Diagnosis:Acute Back Pain Presentation: 03/19 03:55 Presenting complaint: Patient states: he has chronic back pain. pt states he was moving bw2 firewood this weekend, and now has increased lower back pain. pt denies loss of bladder or bowel. Transition of care: Home. 03:55 Acuity: LATONYA 3 bw2 03:55 Method Of Arrival: EMS: 400 bw2 Triage Assessment: 03:58 General: Appears uncomfortable, Behavior is appropriate for age, cooperative. Pain: 2 Complains of pain in lower back pain Pain began years ago. Musculoskeletal: Circulation, motion, and sensation intact Capillary refill < 3 seconds Reports pain in lower back Denies loss of bladder or bowel. Historical: - Allergies: Reclast; Fosamax; Boniva; SULFA (SULFONAMIDES); - Home Meds: 1. ipratropium-albuterol inhl 2. prednisone 5 mg oral tab 2 tabs once daily 3. [place] Oral 4. lorazepam 1 mg oral tab as needed 5. allopurinol 300 mg oral tab 1 tab once daily 6. Advair Diskus 250-50 mcg/dose inhalation dsdv 1 puff 2 times per day approximately 12 hours apart 7. Prolia subcutaneous 8. Vitamin E Oral 9. Mesnex oral 10. Zyrtec Oral - Tetanus: < 10 years. - Ebola Screening: : Patient negative for fever greater than or equal to 101.5 degrees Fahrenheit, and additional compatible Ebola Virus Disease symptoms. Patient denies exposure to infectious person. Patient denies travel to an Ebola-affected area in the 21 days before illness onset. No symptoms or risks identified at this time. . - Immunization history: Flu Vaccine None. - Social history: Smoking status: Patient states was never smoker of tobacco. Screenin:00 Infectious Disease Risk None. Abuse screen: Denies threats or abuse. Nutritional bw2 screening: No deficits noted. Assessment: 04:00 See Triage Assessment done by same RN. Neuro: No deficits noted. bw2 Vital Signs: 03:54 BP 150 / 80; Pulse 93; Resp 20; Temp 99.1; Pulse Ox 94% on R/A; Weight 77.11 kg; Height mv 5 ft. 11 in. (180.34 cm); Pain 8/10; 07:06 BP 144 / 68; Pulse 84; Resp 18; Pulse Ox 97% ; bw2 03:54 Body Mass Index 23.71 (77.11 kg, 180.34 cm) mv ED Course: 03:50 Patient arrived in ED. ma1 03:50 John Jacobs MD is Private Physician. ma1 03:55 Allyssa Lopez is Primary Nurse. bw2 03:57 Triage completed. bw2 03:57 Notified ED Physician of patient's arrival and chief complaint. Dr. Serrato notified. bw2 04:00 Shan Serrato MD is Attending Physician. 04:00 Valuables Remains with patient Patient has correct armband on for positive bw2 identification. Bed in low position. Side rails up X2. 04:01 Inserted peripheral IV: 18 gauge in right antecubital area and blood collected. bw2 04:[address] tt 04:[address] Patient moved back from [address]. tt 06:52 Vishal Kolb MD is Admitting Physician. Administered Medications: 04:13 Drug: Dilaudid 1 mg; Route: IVP; Site: right antecubital; bw2 04:27 Follow up: Response: Pain is decreased bw2 05:23 Drug: Valium 5 mg; Route: IVP; Site: right antecubital; bw2 06:55 Follow up: Response: No adverse reaction bw2 05:23 Drug: Dilaudid 0.5 mg; Route: IVP; Site: right antecubital; bw2 06:55 Follow up: Response: No adverse reaction bw2 06:38 Drug: Dilaudid 1 mg; Route: IVP; Site: right antecubital; mv 06:55 Follow up: Response: No adverse reaction 2 Outcome: 06:52 Decision to Admit by Provider. harpreet 07:06 Admitted to Med/surg accompanied by nurse, via stretcher. bw2 07:06 Condition: good 07:06 Report given to Kamlesh BRYAN 07:06 Discharge Assessment: Patient awake, alert and oriented x 3. No cognitive and/or functional deficits noted. Patient verbalized understanding of disposition instructions. 07:06 Instructed on need to admit 07:51 Patient left the ED. bw2 Signatures: Lorna Hoffman, Shan Menezes RN, MD MD jm Terriere, Tracy tt vogel, margaux mv Wisely, Beth [facility] Katie Andrew [facility]
[2017-03-19] MEDS ORDERED: LORazepam 1 MG TABLET PO PRN (09:12)
[2017-03-19] MEDS ORDERED: RANITIDINE HCL 75 MG PO PRN (09:12)
[2017-03-19] MEDS ORDERED: NON-FORMULARY MEDICATION (Cetirizine Hcl [Zyrtec] 10 MG) PO SCH (09:15)
[2017-03-19] MEDS ORDERED: FLUTICASONE/SALMETEROL 250/50 14 INH DISK INHALATION SCH (09:15)
--- NOTE | 2017-03-19 09:48 | HISTORY & PHYSICAL ---
Reason for visit: Intractable low back pain. HPI: 76-year-old male. Followed by Dr. Magallanes. Extensive back history. Back surgeries. Most recently, underwent revision on 01/08/2017. Had hardware removal at L3-5 from prior fusion. Underwent L2 vertebroplasty. Underwent L2-3 TLIF. Doing fairly well with rehabilitation and working with physical therapy. Decreasing pain medication use and down to 2 hydrocodone pills per day. However , 4 days ago, was lifting firewood. He placed some steel posts as well. Purling fatigued afterward but no significant pain. Next morning, he had exacerbation of his low back pain in the mid low back with radiation into the bilateral low back and bilateral legs, left greater than right. He mowed his lawn on that day and had worsening of pain. Yesterday, and gradually increased over the course of the day. In about 2 a.m., he went to the bathroom and was unable to walk back to bed or even crawl. Based upon this, his called 911, and he was brought into the emergency department. He denies any fevers or chills. No recent trauma. No changes in bowel or bladder habits. He has some intermittent numbness and tingling in his bilateral feet which is baseline for him. He has left lower extremity weakness which is baseline for him. In the emergency department, he was given hydromorphone which gave significant pain relief. CT scan was done showing no fracture and no compromise of his hardware. He is now being admitted for further pain management. With inability to ambulate, he is not appropriate for discharge to home. He denies any lightheadedness or new focal changes in strength or sensation. No confusion. No chest pain or palpitations. No shortness of breath, cough, or wheeze. No abdominal pain, nausea, or vomiting. No significant constipation. No dysuria or hematuria. No skin rashes. Past medical history: Adrenal insufficiency. Actinic keratoses. Asthma, moderate persistent. Chronic low back pain with known spinal stenosis and history of left lower extremity radiculopathy. Insomnia. Chronic sinusitis. Chronic pain syndrome. Elevated insulin-like growth factor. Eustachian tube dysfunction. Gout. History of embolic stroke and TIAs in 01/1987. Hypertension. Hypercholesterolemia. Left anterior fascicular block. Erectile dysfunction. Osteoarthritis. Osteoporosis. Squamous cell carcinoma, face. Seasonal allergies. History of rotator cuff tear. Tendon rupture right biceps. TMJ. Past surgical history: Cholecystectomy Umbilical herniorrhaphy. Lumbar spine revision surgery in 12/2016. Spinal fusion at L3-L5 region 2012. Multiple other lumbar spine surgeries with unclear details. Rhinoplasty. Allergies: Boniva resulting in angioedema. Fosamax resulting in anaphylaxis and angioedema. Reflexes resulting in angioedema. Medications: Advair 250/50 one puff twice a day. Allopurinol 300 milligrams by mouth daily 5 days a week. Calcium carbonate 600 milligrams 2 by mouth daily. Fish oil with vitamin D daily. Fluticasone nasal spray 1 spray each nostril twice a day. Glucosamine chondroitin 2 by mouth daily. Hydrocodone/acetaminophen 10/325 1 half to 1 by mouth twice a day. Combivent 1 inhalation 3 times a day. Lorazepam 1 milligram by mouth daily at bedtime when necessary. Mucinex 600 milligrams by mouth twice a day. Multivitamin one by mouth daily. Prednisone 10 milligrams by mouth daily. Prolia 60 milligrams every 6 months. Vitamin E 100 units by mouth every other day. Zantac 75 milligrams by mouth twice a day. Zyrtec 10 milligrams by mouth daily. Social: No tobacco since 1988. Drinks one large glass of wine per day. No history of withdrawals, seizures, DUI. . Family history: Noncontributory. Review of systems: As above. Remainder are negative. Physical examination: Vital signs: Temperature 30 7.3, blood pressure 109/70, pulse 87, respirations 16. 92% on 1 liter. General: Overweight male. No apparent distress. Breathing easily. Alert and interactive. HEENT: Normocephalic/atraumatic. Pupils are equal, round, reactive to light. Oropharynx is clear with dry mucous membranes. Neck: Supple. No lymphadenopathy. No thyromegaly or nodules. Chest: Mildly decreased breath sounds throughout. Clear to auscultation without rhonchi, rales, or wheezes. Cardiac: Regular rate and rhythm. No S3 or S4. No murmur. PMI feels normal. Abdomen: Mildly to moderately distended. Normoactive bowel sounds. No hepatosplenomegaly. Nontender. No rebound or rigidity. Back: Well-healed incisional scar midline. Nontender in the midline. Mild paraspinous tenderness diffusely. No CVA tenderness. Extremities: Calves are nontender. Evidence of muscle wasting, left lower extremity involving the calf and thigh. Neuro: Alert and oriented times 3. Facial expressions symmetric. Light touch sensation is intact throughout. Strength is 5/5 in the bilateral upper and lower extremities with the exception of left lower extremity where hip flexion is 4-/5. Lymph: No cervical or supraclavicular lymphadenopathy. Skin: No rash. Labs: None. CT scan, lumbar spine: No evidence of fracture. Hardware intact. Postoperative changes as expected. Assessment and plan: 1. Intractable low back pain: In the setting of known severe spinal stenosis with multiple surgeries, most recently in late December. Now, with exacerbation of pain due to activities. No evidence of new neurologic compromise. No evidence of compromise of hardware or fracture by CT scan. However, pain is severe enough that he cannot ambulate safely/independently. Admit for pain control and monitoring. Physical therapy evaluation. Hydromorphone [employer]. Prednisone burst to decrease inflammation. Tylenol as needed. Heat as needed. Cool as needed. Further recommendations will upon his course. No red flag symptoms. 2. Spinal stenosis: As above. 3. Asthma: No evidence of exacerbation. Continue Advair and Combivent. 4. Adrenal insufficiency: Prednisone burst as above. This will help with back pain and also function as stress dose steroid considering medical exacerbation. 5. Chronic pain syndrome: As above. 6. Chronic sinusitis: Continue with current regimen including antihistamine, Mucinex, nasal steroid. 7. Gout: Continue allopurinol. 8. Hypertension: Blood pressure acceptable without medication therapy. Follow- up. 9. Hypercholesterolemia: Not on medications. Deferred to outpatient management. 10. Osteoporosis: Remains on Prolia. 11. Cardiac resuscitation status: Full code. 12. DVT prophylaxis: Lovenox. 13. Disposition: Anticipate discharge within 1-2 days. Please send a copy of H&P to Dr. Magallanes and also to Dr. Sanchez neurosurgery. [facility]
[2017-03-19 09:55] LABS: BASOPHIL# 0.1 X 10^3uL (0.0-0.1); BASOPHILS 0.5 % (0.0-2.0); EOSINOPHILS 1.3 % (0.0-6.0); EOSINOPHILS# 0.2 X 10^3uL (0.0-0.4); HEMATOCRIT 45.2 % (42.0-54.0); HEMOGLOBIN 15.3 g/dL (14.0-18.0); LYMPHOCYTES 16.9 % (20.0-40.0); LYMPHOCYTES# 2.4 X 10^3uL (0.8-3.8); MEAN CELL VOLUME 89.1 fL (80.0-100.0); MEAN CORPUS. HGB CONCENTRATION 33.8 g/dL (32.0-36.0); MEAN CORPUSCULAR HEMOGLOBIN 30.2 pg (29.0-35.0); MEAN PLATELET VOLUME 7.9 fL (7.4-10.4); MONOCYTES 9.2 % (2.0-10.0); MONOCYTES# 1.3 X 10^3uL (0.2-1.0); NEUTROPHILS 72.1 % (54.0-75.0); PLATELET COUNT 314 X 10^3uL (130-440); RED BLOOD COUNT 5.07 X 10^6uL (4.20-6.10); RED CELL DISTRIBUTION WIDTH 13.4 % (11.5-14.5)
[2017-03-19] MEDS ORDERED: IPRATROPIUM/ALBUTEROL 1 INH INHALER INHALATION SCH ×3 (10:00→15:00)
[2017-03-19] MEDS ORDERED: INHALER, ASSIST DEVICES 1 PKT EACH INHALATION ONE (10:02)
[2017-03-19 10:14] LABS: A/G RATIO 1.4; ALBUMIN 3.9 g/dL (3.5-5.0); ALKALINE PHOSPHATASE 82 U/L (38-126); ALT 44 U/L (21-72); AST 42 U/L (17-59); BILIRUBIN, TOTAL 0.7 mg/dL (0.2-1.3); BLOOD UREA NITROGEN 18 mg/dL (9-20); CALCIUM 9.6 mg/dL (8.4-10.2); CHLORIDE 105 mmol/L (98-107); EST GLOMERULAR FILTRATION RATE > 60 mL/min; SODIUM 142 mmol/L (137-145); TOTAL PROTEIN 6.7 g/dL (6.3-8.2)
[2017-03-19] MEDS ORDERED: IPRATROPIUM/ALBUTEROL 1 INH INHALER INHALATION ONE (10:22)
[2017-03-19] MEDS ORDERED: FLUTICASONE/SALMETEROL 250/50 14 INH DISK INHALATION ONE (10:23)
[2017-03-19 10:27] LABS: GLUCOSE 49 mg/dL (70-100)
[2017-03-19] MEDS: FEXOFENADINE HCL 180 MG TABLET PO SCH (11:00)
[2017-03-19] MEDS: ALLOPURINOL 300 MG TABLET PO SCH (11:01)
[2017-03-19] MEDS: predniSONE 20 MG TABLET PO SCH ×2 (11:01→21:07)
[2017-03-19] MEDS ORDERED: IPRATROPIUM/ALBUTEROL 0.5/3 MG 3 ML AMPUL.NEB INHALATION ONE (11:48)
[2017-03-19] MEDS ORDERED: NORMAL SALINE 1,000 ML IV ONE (12:07)
[2017-03-19 14:08] LABS: URINE APPEARANCE CLEAR; URINE COLOR YELLOW; URINE LEUKOCYTE ESTERASE NEGATIVE (NEGATIVE); URINE NITRITE NEGATIVE (NEGATIVE); URINE RBC NONE SEEN (0-5/hpf)
[2017-03-19 14:09] LABS: URINE AMORPHOUS SEDIMENT NONE SEEN (Up to 25%); URINE BACTERIA NONE SEEN (<10/hpf); URINE BILIRUBIN NEGATIVE (NEGATIVE); URINE BLOOD NEGATIVE (NEGATIVE); URINE GLUCOSE NORMAL (NEGATIVE); URINE KETONE NEGATIVE (NEGATIVE); URINE MUCUS UP TO 25%/lpf (Up to 25%); URINE PROTEIN NEGATIVE (NEG - TRACE); URINE SQUAMOUS EPITHELIAL CELL 0-5/hpf (<= 15/hpf); URINE UROBILINOGEN NORMAL (NEG-1mg/dL); URINE WBC 0-4/hpf (0-4/hpf)
[2017-03-19] MEDS ORDERED: ONDANSETRON HCL 4 MG/2 ML VIAL IV PRN (15:12)
[2017-03-19] MEDS: IPRATROPIUM/ALBUTEROL 0.5/3 MG 3 ML AMPUL.NEB INHALATION SCH ×2 (16:25→18:19)
[2017-03-19] MEDS ORDERED: ACETAMINOPHEN 325 MG TABLET PO ONE (18:23)
[2017-03-19] MEDS ORDERED: NON-FORMULARY MEDICATION (Guaifenesin [Mucinex] 1,200 MG) PO SCH (21:00)
[2017-03-19] MEDS: FAMOTIDINE 20 MG TABLET PO SCH (21:07)
[2017-03-19] MEDS: FLUTICASONE/SALMETEROL 250/50 14 INH DISK INHALATION SCH (21:07)
[2017-03-19] MEDS: GUAIFENESIN ER 600 MG TABLET PO SCH (21:08)
[2017-03-20] MEDS: IPRATROPIUM/ALBUTEROL 0.5/3 MG 3 ML AMPUL.NEB INHALATION SCH ×3 (05:49→18:01)
[2017-03-20] MEDS: FEXOFENADINE HCL 180 MG TABLET PO SCH (09:01)
[2017-03-20] MEDS: FLUTICASONE/SALMETEROL 250/50 14 INH DISK INHALATION SCH ×2 (09:01→21:15)
[2017-03-20] MEDS: FAMOTIDINE 20 MG TABLET PO SCH ×2 (09:02→21:45)
[2017-03-20] MEDS: predniSONE 20 MG TABLET PO SCH ×2 (09:03→21:45)
[2017-03-20] MEDS: ALLOPURINOL 300 MG TABLET PO SCH (09:04)
[2017-03-20] MEDS: GUAIFENESIN ER 600 MG TABLET PO SCH ×2 (09:04→21:45)
[2017-03-20] MEDS: ENOXAPARIN SODIUM 40 MG/0.4 ML SYR SUBCUT SCH (09:10)
--- NOTE | 2017-03-20 09:38 | PROGRESS NOTE: IM APSO ---
Assessment and Plan - Date of Encounter Date of Encounter: 03/20/17 (1) Intractable low back pain Status: Acute Assessment and plan: Improvement over the last 24 hours. Remains on STAFF INTERPRETER and will transition to oral medication today. Remains on prednisone burst in the setting adrenal insufficiency. No new neurologic symptoms. Physical therapy evaluation is pending. Await PT. Increase activity. Possibly discharge home tomorrow. Current Visit: Yes (2) Spinal stenosis Status: Chronic Assessment and plan: With multiple previous spine surgeries most recent being in late December. Exacerbation of pain as above. Current Visit: Yes (3) Asthma, moderate persistent Status: Chronic Assessment and plan: No evidence of exacerbation. Continue on usual regimen. Current Visit: Yes (4) Hypertension, benign Status: Chronic Current Visit: Yes (5) Leukocytosis Status: Acute Assessment and plan: In the setting of adrenal insufficiency with chronic prednisone use and now prednisone burst. Doubt spinal infection, and there was no evidence of this on CT. Repeat lab today. Without other focus of infection or fever, no indication for antibiotics. Current Visit: Yes (6) Adrenal insufficiency Status: Chronic Assessment and plan: Generally on prednisone at 10 milligrams daily. Now, on 20 milligrams by mouth twice a day for 5 days for spinal stenosis exacerbation. Plan to transition back to low-dose thereafter. Current Visit: Yes (7) DVT prophylaxis Status: Acute Assessment and plan: Lovenox. Current Visit: Yes - Time Spent With Patient Total time spent with greater than 50% in coordination of care (as documented) at patient's floor/unit and/or counseling patient: 16-24 minutes IM: PN Subjective General: pain (better and was able to sit up briefly this morning), no fever, no chills Cardiovascular: no chest pain, no palpitations Respiratory: no cough, no wheeze, no SOB Gastrointestinal: constipation, no abdominal pain, no nausea, no vomiting Genitourinary: no dysuria Musculoskeletal: pain, weakness (Baseline left lower extremity weakness) Integumentary: no rashes Neurological: limb weakness, no numbness, no tingling IM: PN Objective Exam - I&O/Vital Signs I&O: Intake & Output 03/19/17 03/20/17 03/20/17 21:59 05:59 13:59 Intake Total 1200 Output Total 1560 Balance -360 Intake: IV 500 Right Antecubital 500 Oral 700 Output: Urine 1560 Other: Urine Appearance Clear Urine Color Yellow Voiding Method Urinal Urinal Vital Signs: Last Vital Signs Temp 36.5 C 03/20/17 06:56 Pulse 90 03/20/17 06:56 Resp 18 03/20/17 06:56 BP 116/74 03/20/17 07:50 Pulse Ox 90 03/20/17 06:56 Oxygen Flow Rate 3 Oxygen Delivery Method Nasal Cannula - Constitutional General appearance: Present: obese - Head Head exam: Present: normal inspection - Eye Eye exam: Present: EOMI - ENT ENT exam: Present: mucous membranes moist - Neck Neck exam: Present: full ROM - Respiratory Respiratory exam: Present: decreased breath sounds (mild), clear. Absent: rales , rhonchi, wheezes - Cardiovascular Cardiovascular exam: Present: RRR. Absent: S3, S4, systolic murmur - GI/Abdominal GI/Abdominal exam: Present: distended (mildly), normal bowel sounds, soft. Absent: organomegaly, tenderness - Extremities Exam Extremities exam: Absent: calf tenderness, edema - Neurological Exam Neurological exam: Present: oriented X3, other (light touch intact bilaterally lower extremities, left leg weakness at baseline) - Psychiatric Psychiatric exam: Absent: anxious, depressed - Skin Skin exam: Absent: rash - Allied Health Notes Allied health notes reviewed: nursing - Lab Labs: Laboratory Last Values WBC 14.0 X 10^3uL (3.9-10.7) H 03/19/17 03:36 RBC 5.07 X 10^6uL (4.20-6.10) 03/19/17 03:36 Hgb 15.3 g/dL (14.0-18.0) 03/19/17 03:36 Hct 45.2 % (42.0-54.0) 03/19/17 03:36 MCV 89.1 fL (80.0-100.0) 03/19/17 03:36 MCH 30.2 pg (29.0-35.0) 03/19/17 03:36 MCHC 33.8 g/dL (32.0-36.0) 03/19/17 03:36 RDW 13.4 % (11.5-14.5) 03/19/17 03:36 Plt Count 314 X 10^3uL (130-440) 03/19/17 03:36 MPV 7.9 fL (7.4-10.4) 03/19/17 03:36 Neutrophils % 72.1 % (54.0-75.0) 03/19/17 03:36 Lymphocytes % 16.9 % (20.0-40.0) L 03/19/17 03:36 Eosinophils % 1.3 % (0.0-6.0) 03/19/17 03:36 Basophils % 0.5 % (0.0-2.0) 03/19/17 03:36 Neutrophils # 10.0 X 10^3uL (2.6-6.7) H 03/19/17 03:36 Lymphocytes # 2.4 X 10^3uL (0.8-3.8) 03/19/17 03:36 Monocytes 9.2 % (2.0-10.0) 03/19/17 03:36 Monocytes # 1.3 X 10^3uL (0.2-1.0) H 03/19/17 03:36 Eosinophils # 0.2 X 10^3uL (0.0-0.4) 03/19/17 03:36 Basophils # 0.1 X 10^3uL (0.0-0.1) 03/19/17 03:36 Sodium 142 mmol/L (137-145) 03/19/17 03:36 Potassium 4.0 mmol/L (3.5-5.1) 03/19/17 03:36 Chloride 105 mmol/L (98-107) 03/19/17 03:36 Carbon Dioxide 21 mmol/L (22-30) L 03/19/17 03:36 BUN 18 mg/dL (9-20) 03/19/17 03:36 Creatinine 1.0 mg/dL (0.7-1.3) 03/19/17 03:36 GFR Calculation > 60 mL/min 03/19/17 03:36 Glucose 49 mg/dL (70-100) L 03/19/17 03:36 Calcium 9.6 mg/dL (8.4-10.2) 03/19/17 03:36 Total Bilirubin 0.7 mg/dL (0.2-1.3) 03/19/17 03:36 AST 42 U/L (17-59) 03/19/17 03:36 ALT 44 U/L (21-72) 03/19/17 03:36 Alkaline Phosphatase 82 U/L (38-126) 03/19/17 03:36 Total Protein 6.7 g/dL (6.3-8.2) 03/19/17 03:36 Albumin 3.9 g/dL (3.5-5.0) 03/19/17 03:36 Albumin/Globulin Ratio 1.4 03/19/17 03:36 Urine Color Yellow 03/19/17 09:35 Urine Appearance Clear 03/19/17 09:35 Urine pH 6.0 (5-7) 03/19/17 09:35 Ur Specific [place] 1.020 (0.001-1.035) 03/19/17 09:35 Urine Protein Negative (NEG - TRACE) 03/19/17 09:35 Urine Ketones Negative (NEGATIVE) 03/19/17 09:35 Urine Blood Negative (NEGATIVE) 03/19/17 09:35 Urine Nitrate Negative (NEGATIVE) 03/19/17 09:35 Urine Bilirubin Negative (NEGATIVE) 03/19/17 09:35 Urine Urobilinogen Normal (NEG-1mg/dL) 03/19/17 09:35 Ur Leukocyte Esterase Negative (NEGATIVE) 03/19/17 09:35 Urine RBC None seen (0-5/hpf) 03/19/17 09:35 Urine WBC 0-4/hpf (0-4/hpf) 03/19/17 09:35 Ur Squamous Epith Cells 0-5/hpf (<= 15/hpf) 03/19/17 09:35 Amorphous Sediment None seen (Up to 25%) 03/19/17 09:35 Urine Bacteria None seen (<10/hpf) 03/19/17 09:35 Urine Mucus Up to 25%/lpf (Up to 25%) 03/19/17 09:35 Urine Glucose Normal (NEGATIVE) 03/19/17 09:35 Quality Questions - VTE Prophylaxis Assessment VTE Present on Admission?: No Patient at risk for venous thromboembolism?: Yes VTE Risk Level: High Risk Pharmaceutical VTE prophylaxis contraindication reason: N/A- VTE prophylaxsis ordered Mechanical VTE prophylaxis contraindication reason: not indicated (2) Spinal stenosis Qualifiers: Spinal region: lumbar Qualified Code(s): M48.06 - Spinal stenosis, lumbar region (3) Asthma, moderate persistent Qualifiers: Asthma complication type: uncomplicated Qualified Code(s): J45.40 - Moderate persistent asthma, uncomplicated (5) Leukocytosis Qualifiers: Leukocytosis type: unspecified Qualified Code(s): D72.829 - Elevated white blood cell count, unspecified
[2017-03-20 10:15] LABS: BASOPHIL# 0.1 X 10^3uL (0.0-0.1); BASOPHILS 0.9 % (0.0-2.0); HEMATOCRIT 44.2 % (42.0-54.0); HEMOGLOBIN 15.2 g/dL (14.0-18.0); LYMPHOCYTES 3.2 % (20.0-40.0); LYMPHOCYTES# 0.5 X 10^3uL (0.8-3.8); MEAN CELL VOLUME 87.9 fL (80.0-100.0); MEAN CORPUS. HGB CONCENTRATION 34.3 g/dL (32.0-36.0); MEAN CORPUSCULAR HEMOGLOBIN 30.2 pg (29.0-35.0); MEAN PLATELET VOLUME 7.8 fL (7.4-10.4); MONOCYTES 5.1 % (2.0-10.0); MONOCYTES# 0.8 X 10^3uL (0.2-1.0); NEUTROPHILS# 13.4 X 10^3uL (2.6-6.7); PLATELET COUNT 281 X 10^3uL (130-440); RED BLOOD COUNT 5.03 X 10^6uL (4.20-6.10); RED CELL DISTRIBUTION WIDTH 13.1 % (11.5-14.5); WHITE BLOOD COUNT 14.8 X 10^3uL (3.9-10.7)
[2017-03-20 10:33] LABS: NEUTROPHILS 90.8 % (54.0-75.0)
[2017-03-20 10:56] LABS: BLOOD UREA NITROGEN 16 mg/dL (9-20); CHLORIDE 106 mmol/L (98-107); EST GLOMERULAR FILTRATION RATE > 60 mL/min; POTASSIUM 4.4 mmol/L (3.5-5.1); SODIUM 136 mmol/L (137-145)
[2017-03-20 11:13] LABS: GLUCOSE 234 mg/dL (70-100)
[2017-03-20] MEDS ORDERED: DEXTROSE 50% WATER 25 GM/50 ML SYR IV PRN (11:50)
[2017-03-20] MEDS: CALCIUM CARBONATE 500 MG TABLET PO SCH ×2 (11:50→21:45)
[2017-03-20] MEDS ORDERED: POLYETHYLENE GLYCOL 3350 17 GM POWD.PACK PO PRN (12:19)
[2017-03-20] MEDS: INSULIN LISPRO 100 UNIT/ML ML SUBCUT SCH ×2 (17:33→21:47)
[2017-03-21] MEDS ORDERED: IPRATROPIUM/ALBUTEROL 1 INH INHALER INHALATION SCH
[2017-03-21] MEDS ORDERED: FLUTICASONE/SALMETEROL 250/50 14 INH DISK INHALATION SCH
[2017-03-21] MEDS ORDERED: INHALER, ASSIST DEVICES 1 PKT EACH INHALATION SCH
[2017-03-21] MEDS ORDERED: MAGNESIUM HYDROXIDE 30 ML UDC PO PRN (05:33)
[2017-03-21] MEDS: IPRATROPIUM/ALBUTEROL 0.5/3 MG 3 ML AMPUL.NEB INHALATION SCH ×2 (05:42→11:36)
[2017-03-21 06:20] LABS: BASOPHIL# 0.1 X 10^3uL (0.0-0.1); BASOPHILS 0.6 % (0.0-2.0); HEMATOCRIT 41.7 % (42.0-54.0); HEMOGLOBIN 14.3 g/dL (14.0-18.0); LYMPHOCYTES 3.3 % (20.0-40.0); LYMPHOCYTES# 0.6 X 10^3uL (0.8-3.8); MEAN CELL VOLUME 87.8 fL (80.0-100.0); MEAN CORPUS. HGB CONCENTRATION 34.2 g/dL (32.0-36.0); MEAN PLATELET VOLUME 7.6 fL (7.4-10.4); MONOCYTES 4.9 % (2.0-10.0); MONOCYTES# 0.9 X 10^3uL (0.2-1.0); NEUTROPHILS 91.2 % (54.0-75.0); NEUTROPHILS# 15.9 X 10^3uL (2.6-6.7); PLATELET COUNT 275 X 10^3uL (130-440); RED BLOOD COUNT 4.75 X 10^6uL (4.20-6.10); RED CELL DISTRIBUTION WIDTH 13.4 % (11.5-14.5)
[2017-03-21 06:35] LABS: BLOOD UREA NITROGEN 20 mg/dL (9-20); CALCIUM 9.6 mg/dL (8.4-10.2); CHLORIDE 107 mmol/L (98-107); EST GLOMERULAR FILTRATION RATE > 60 mL/min; GLUCOSE 180 mg/dL (70-100); POTASSIUM 4.3 mmol/L (3.5-5.1); SODIUM 140 mmol/L (137-145)
[2017-03-21 06:51] LABS: WHITE BLOOD COUNT 17.5 X 10^3uL (3.9-10.7)
[2017-03-21] MEDS: INSULIN LISPRO 100 UNIT/ML ML SUBCUT SCH ×2 (08:09→11:46)
[2017-03-21] MEDS: FLUTICASONE/SALMETEROL 250/50 14 INH DISK INHALATION SCH (08:12)
[2017-03-21] MEDS: FEXOFENADINE HCL 180 MG TABLET PO SCH (08:14)
[2017-03-21] MEDS: ENOXAPARIN SODIUM 40 MG/0.4 ML SYR SUBCUT SCH (08:15)
[2017-03-21] MEDS: CALCIUM CARBONATE 500 MG TABLET PO SCH (08:15)
[2017-03-21] MEDS: predniSONE 20 MG TABLET PO SCH (08:15)
[2017-03-21] MEDS: ALLOPURINOL 300 MG TABLET PO SCH (08:16)
[2017-03-21] MEDS: FAMOTIDINE 20 MG TABLET PO SCH (08:17)
[2017-03-21] MEDS: GUAIFENESIN ER 600 MG TABLET PO SCH (08:17)
--- NOTE | 2017-03-21 09:09 | PROGRESS NOTE: IM APSO ---
Assessment and Plan - Date of Encounter Date of Encounter: 03/21/17 (1) Intractable low back pain Status: Acute Assessment and plan: Improved on prednisone and hydrocodone D/C home Current Visit: Yes (2) Spinal stenosis Status: Chronic Current Visit: Yes - Time Spent With Patient Total time spent with greater than 50% in coordination of care (as documented) at patient's floor/unit and/or counseling patient: IM: PN Subjective General: pain (LBP continues to improve, able to ambulate safely, ready for D/C home) Musculoskeletal: weakness (Baseline left lower extremity weakness) Neurological: no numbness IM: PN Objective Exam - I&O/Vital Signs I&O: Intake & Output 03/20/17 03/21/17 03/21/17 21:59 05:59 13:59 Intake Total 790 1050 Output Total 525 550 Balance 265 500 Intake: Oral 790 1050 Output: Urine 525 550 Stool 0 Other: Urine Appearance Clear Clear Urine Color Pale Yellow Voiding Method Toilet Urinal # Voids 1 Vital Signs: Last Vital Signs Temp 36.8 C 03/21/17 06:10 Pulse 87 03/21/17 06:10 Resp 15 03/21/17 08:25 BP 129/65 03/21/17 06:10 Pulse Ox 92 03/21/17 08:45 Oxygen Flow Rate 2 Oxygen Delivery Method Room Air - Constitutional General appearance: Absent: acute distress - Extremities Exam Extremities exam: Absent: calf tenderness, edema - Back Exam Back exam: Present: other (normal SLRs). Absent: paraspinal tenderness, vertebral tenderness - Neurological Exam Neurological exam: Present: other (light touch intact bilaterally lower extremities, left leg weakness at baseline) - Lab Labs: Laboratory Last Values WBC 17.5 X 10^3uL (3.9-10.7) H 03/21/17 05:55 RBC 4.75 X 10^6uL (4.20-6.10) 03/21/17 05:55 Hgb 14.3 g/dL (14.0-18.0) 03/21/17 05:55 Hct 41.7 % (42.0-54.0) L 03/21/17 05:55 MCV 87.8 fL (80.0-100.0) 03/21/17 05:55 MCH 30.0 pg (29.0-35.0) 03/21/17 05:55 MCHC 34.2 g/dL (32.0-36.0) 03/21/17 05:55 RDW 13.4 % (11.5-14.5) 03/21/17 05:55 Plt Count 275 X 10^3uL (130-440) 03/21/17 05:55 MPV 7.6 fL (7.4-10.4) 03/21/17 05:55 Neutrophils % 91.2 % (54.0-75.0) H 03/21/17 05:55 Lymphocytes % 3.3 % (20.0-40.0) L 03/21/17 05:55 Eosinophils % 0.0 % (0.0-6.0) 03/21/17 05:55 Basophils % 0.6 % (0.0-2.0) 03/21/17 05:55 Neutrophils # 15.9 X 10^3uL (2.6-6.7) H 03/21/17 05:55 Lymphocytes # 0.6 X 10^3uL (0.8-3.8) L 03/21/17 05:55 Monocytes 4.9 % (2.0-10.0) 03/21/17 05:55 Monocytes # 0.9 X 10^3uL (0.2-1.0) 03/21/17 05:55 Eosinophils # 0.0 X 10^3uL (0.0-0.4) 03/21/17 05:55 Basophils # 0.1 X 10^3uL (0.0-0.1) 03/21/17 05:55 Sodium 140 mmol/L (137-145) 03/21/17 05:55 Potassium 4.3 mmol/L (3.5-5.1) 03/21/17 05:55 Chloride 107 mmol/L (98-107) 03/21/17 05:55 Carbon Dioxide 24 mmol/L (22-30) 03/21/17 05:55 BUN 20 mg/dL (9-20) 03/21/17 05:55 Creatinine 0.8 mg/dL (0.7-1.3) 03/21/17 05:55 GFR Calculation > 60 mL/min 03/21/17 05:55 Glucose 180 mg/dL (70-100) H 03/21/17 05:55 Calcium 9.6 mg/dL (8.4-10.2) 03/21/17 05:55 Total Bilirubin 0.7 mg/dL (0.2-1.3) 03/19/17 03:36 AST 42 U/L (17-59) 03/19/17 03:36 ALT 44 U/L (21-72) 03/19/17 03:36 Alkaline Phosphatase 82 U/L (38-126) 03/19/17 03:36 Total Protein 6.7 g/dL (6.3-8.2) 03/19/17 03:36 Albumin 3.9 g/dL (3.5-5.0) 03/19/17 03:36 Albumin/Globulin Ratio 1.4 03/19/17 03:36 Urine Color Yellow 03/19/17 09:35 Urine Appearance Clear 03/19/17 09:35 Urine pH 6.0 (5-7) 03/19/17 09:35 Ur Specific [place] 1.020 (0.001-1.035) 03/19/17 09:35 Urine Protein Negative (NEG - TRACE) 03/19/17 09:35 Urine Ketones Negative (NEGATIVE) 03/19/17 09:35 Urine Blood Negative (NEGATIVE) 03/19/17 09:35 Urine Nitrate Negative (NEGATIVE) 03/19/17 09:35 Urine Bilirubin Negative (NEGATIVE) 03/19/17 09:35 Urine Urobilinogen Normal (NEG-1mg/dL) 03/19/17 09:35 Ur Leukocyte Esterase Negative (NEGATIVE) 03/19/17 09:35 Urine RBC None seen (0-5/hpf) 03/19/17 09:35 Urine WBC 0-4/hpf (0-4/hpf) 03/19/17 09:35 Ur Squamous Epith Cells 0-5/hpf (<= 15/hpf) 03/19/17 09:35 Amorphous Sediment None seen (Up to 25%) 03/19/17 09:35 Urine Bacteria None seen (<10/hpf) 03/19/17 09:35 Urine Mucus Up to 25%/lpf (Up to 25%) 03/19/17 09:35 Urine Glucose Normal (NEGATIVE) 03/19/17 09:35 (2) Spinal stenosis Qualifiers: Spinal region: lumbar Qualified Code(s): M48.06 - Spinal stenosis, lumbar region
[2017-03-21 11:41] VITALS: BP 140/72; PULSE 84; RESP 17; TEMP 97.3; O2SAT 90
--- NOTE | 2017-03-21 14:36 | DISCHARGE SUMMARY ---
DATE OF ADMISSION: 03/21/17 ATTENDING PHYSICIAN: John Jacobs MD DIAGNOSES 1. Intractable low back pain. 2. Lumbar spinal stenosis. HISTORY OF PRESENT ILLNESS: Patient is 76-year-old male with multiple back surgeries, with most recent revision 01/08/17. He had been rehabilitating and working with physical therapy. Hydrocodone pain medications had dropped down to 2 tabs daily. However, prior to admission, he was lifting some firewood and placed some steel posts as well. The next morning he had exacerbation of his low back pain, radiating into bilateral legs, left greater than right. He mowed the lawn that day and that aggravated the pain. Symptoms progressed and worsened over the next day. At about 2:00 a.m. to the morning of admission, the patient went to the bathroom and was unable to walk back to bed or even crawl. Patient was brought into the Emergency Room by ambulance. No change in bowel or bladder function. Please see previously dictated history and physical by Dr. Kolb for further details. HOSPITAL COURSE: Patient was admitted with intractable low back pain with underlying severe lumbar and spinal stenosis with multiple previous surgeries. Patient was started on a Hydromorphone DIRECTOR [employer] pump, Prednisone and physical therapy. By the time he was discharged, patients pain had dramatically improved , and he was able to ambulate down the hallway once again. He was felt to be sufficiently stable for discharge home. DISCHARGE INSTRUCTIONS: Patient was encouraged to ambulate 3 times per day and he is on a regular diet. He has a follow up appointment with Dr. Kolb on I did call Dr. Vieyra nurse and encouraged her to discuss this with Dr. Kolb and find and earlier date for hospital follow up if possible. Arrangements were made for outpatient physical therapy at [facility] x9 visits. DISCHARGE MEDICATIONS Prednisone 40 mg p.o. daily x3 days, 20 mg p.o. daily x3 days, and then will resume his usual 10 mg p.o. daily. Hydrocodone/APAP 10/325 mg, has been increased to 1 tab p.o. q.i.d. PRN pain and can be tapered as symptoms improve #40. Allopurinol 300 mg p.o. daily. Calcium carbonate 500 mg 2 tabs p.o. daily. Zyrtec 10 mg p.o. daily. Prolia 60 mg sub.q q.6 months. Advair 250/50 inhaler 1 puff b.i.d. Glucosamine chondroitin 2 tabs p.o. daily. Mucinex 1200 mg p.o. b.i.d. Combivent inhaler 1 puff t.i.d. Lorazepam 1 mg p.o. q.h.s. Multivitamin 1 tab p.o. daily. Fish oil 1 tab 3 times per week. Ranitidine 75 mg p.o. b.i.d. PRN. Vitamin E 100 units 3 times per week. Copies to: Dr. Magallanes. Dr. Cortes RODARTE
== END 2017-03-21 09:05 | disposition home or self-care (01) ==
LOC: ER 03:49 → IN 07:50
PROVIDERS: ADMIT Family Medicine; ATTEND Family Medicine
DX: M48.06 Spinal stenosis, lumbar region (principal); M81.0 Age-related osteoporosis without current pathological fracture; Z86.79 Personal history of other diseases of the circulatory system; M15.9 Polyosteoarthritis, unspecified; M10.9 Gout, unspecified; I10 Essential (primary) hypertension; J45.40 Moderate persistent asthma, uncomplicated; E27.40 Unspecified adrenocortical insufficiency; J32.0 Chronic maxillary sinusitis; G89.29 Other chronic pain; E78.5 Hyperlipidemia, unspecified; G47.00 Insomnia, unspecified; Z85.828 Personal history of other malignant neoplasm of skin; J30.1 Allergic rhinitis due to pollen; Z79.899 Other long term (current) drug therapy; Z74.3 Need for continuous supervision
CPT/HCPCS: 36415; 72131; 80048; 80053; 81001; 85025; 93041; 94640; 94664; 94760; 96372; 96374; 96375; 96376; 99217; 99219; 99224; 99285; A0425; A0429; G0378; G8978; G8979; J1170; J1650; J1815; J2405; J3360; J7030; J7620

== ENCOUNTER 2017-03-29 07:41 | Emergency (ER) | payer MEDICARE, BC ==
[2017-03-29] MEDS ORDERED: FENTANYL 100 MCG/2 ML VIAL ONE (08:08)
[2017-03-29] MEDS ORDERED: ONDANSETRON HCL 4 MG/2 ML VIAL ONE ×2 (08:31→09:34)
--- NOTE | 2017-03-29 10:04 | ER NURSING DOCUMENTATION ---
Nurse's Notes [facility] Name:Cliff Jain Age:76 yrs Sex:Male :1940 Arrival Date:03/29/2017 Time:07:41 Bed6 Private MD:John Jacobs Diagnosis:Acute Low Back Pain Presentation: 03/29 07:44 Acuity: LATONYA 3 st 07:50 Transition of care: Home. st 07:50 Method Of Arrival: EMS: 420 st 07:58 Presenting complaint: Presenting complaint: Patient states: pt had back surgery in december that was going well then two weeks ago he started to have bad back pain. pt has been in pain since that time. He was seen and admitted once during that time frame and now states that the pain is just unbearable. 08:19 Care prior to arrival: Medication(s) given: Fentanyl 100MCG pt took a norc about 1.5 st hours ago. Triage Assessment: 07:50 General: Appears in no apparent distress, Behavior is cooperative. Pain: Complains of st pain in lumbar area Pain radiates to left hip, right hip, right leg and left leg Pain currently is 10 out of 10 on a pain scale. Pain began 2 weeks ago. Neuro: Reports shooting pain in hips and down legs. pt has good foot strength but pt states he has experienced some weakness in his legs. pt denies any incontinence. . Cardiovascular: No deficits noted. Respiratory: No deficits noted. GI: No deficits noted. Musculoskeletal: Circulation, motion, and sensation intact Tenderness present in lumbar area. Historical: - Allergies: SULFA (SULFONAMIDES); Boniva; Fosamax; Reclast; - Home Meds: 1. Advair Diskus 250-50 mcg/dose inhalation dsdv 1 puff 2 times per day approximately 12 hours apart 2. Allopurinol Oral 3. Albuterol Inhl 4. Zantac Oral 5. Zyrtec Oral 6. Calcium Lactate Oral 7. Mesnex oral 8. Vitamin E Oral 9. glucosamine-chondroitin oral 10. [place] Oral 11. Prednisone Oral 12. Prolia subcutaneous 13. Lorazepam Oral 14. Methocarbamol Oral - PMHx: GOUT; ASTHMA; ANXIETY; - PSHx: CHOLECYSECTOMY; back; - Tetanus: < 10 years. - Ebola Screening: : Patient denies exposure to infectious person. Patient denies travel to an Ebola-affected area in the 21 days before illness onset. . - Immunization history: Pneumococcal vaccine status is unknown. - Social history: Smoking status: Patient states former smoker of tobacco. Patient uses alcohol Patient/guardian denies using marijuana. Screenin:14 Infectious Disease Risk None. Abuse screen: Denies threats or abuse. Denies injuries st from another. Nutritional screening: No deficits noted. Assessment: 08:14 General: pt resting quietly. st 08:53 General: pt states his pain is better. . st 09:49 General: pain is coming back.. st Vital Signs: 07:48 BP 123 / 76 (auto/); Pulse 92; Pulse Ox 92% on R/A; Pain 10/10; st 07:49 Pulse Ox 92% ; st 08:19 BP 126 / 63 (auto/); Pulse 87; st 08:24 Pulse Ox 91% ; st 08:30 BP 123 / 61 (auto/); Pulse 88; st 08:34 Pulse Ox 92% ; st ED Course: 07:43 Patient arrived in ED. ama 07:43 John Jacobs MD is Private Physician. ama 07:44 Yenny Saleh RN is Primary Nurse. st 07:[address] 07:50 Arnie Mao MD is Attending Physician. tl1 08:03 Oxygen Oxygen administration via nasal cannula @ 2L/min. st 08:14 Valuables Remains with patient. st 08:53 Diet: Patient given water. st Administered Medications: 08:19 Drug: Dilaudid 1 mg; Route: IVP; Site: left hand; st 09:50 Follow up: Response: Pain is decreased st 08:19 Drug: Zofran 4 mg; Route: IVP; Infused Over: 2 mins; Site: left hand; st 09:50 Follow up: Response: Nausea is decreased st 09:23 Drug: Zofran 4 mg; Route: IVP; Infused Over: 2 mins; Site: left hand; st 09:50 Follow up: Response: Nausea unchanged st 09:50 Drug: Dilaudid 1 mg; Route: IVP; Site: left hand; st 09:50 Follow up: Response: Medication administered at discharge. st 09:50 Drug: Phenergan 12.5 mg; Route: IVP; Site: left hand; st 09:51 Follow up: Response: Medication administered at discharge. st Outcome: 09:01 Transferred: Patient will be transferred to: [facility]. Facility st Acceptance Time: March 29, 2017 at 09:02 Patient's face sheet was faxed to accepting facility. Face Sheet included patient's name, address, age, gender, contact information and insurance information. 09:01 Report given to called [facility] for room number and was told they knew nothing about it. and that I need to be calling them to let them know they needed to get a room number. No one else would be doing that. 09:17 ER care complete, transfer ordered by . tl1 09:33 Transferred: Patient will be transported by: [facility] ground. Report called to: Kellee morton RN Nurse and Physician Charting and Notes were sent to Accepting Facility. All tests and/or procedures with results, if applicable, were sent to accepting facility. 10:01 Condition: stable st 10:01 Instructed on need for transfer 10:03 Patient left the ED. st Signatures: Yenny Saleh RN Giuseppe Valiente, Reg Reg Arnie Rothman MD MD tl1
--- NOTE | 2017-03-29 10:04 | ER PHYSICIAN DOCUMENTATION ---
Physician Documentation [facility] Name:Cliff Jain Age:76 yrs Sex:Male :1940 Arrival Date:03/29/2017 Time:07:41 Bed6 Private MD:John Jacobs ED, Tom Disposition: 03/29 09:56 Chart complete. tl1 Disposition: 03/29/17 09:17 [facility] Diagnosis is Acute Low Back Pain. - Reason for transfer: Higher level of care. - Accepting physician is Prema Jaffe MD. - Condition is Good. - Problem is an ongoing problem. - Symptoms are unchanged. COBRA Form completed? Yes Transfer - Mode of Transportation Ambulance HPI: 07:50 This 76 yrs old Male presents to ER via EMS with complaints of Back Pain. tl1 07:50 The patient presents with pain that is acute. The symptoms are located in the low back. tl1 Onset: The symptoms/episode began/occurred 2 week(s) ago. The pain radiates down both lower extremities. Associated signs and symptoms: Pertinent negatives: dysuria, fever, hematuria, incontinence, numbness, urinary retention, weakness. The problem was sustained from a chronic condition, the patient has known disc disease, the patient has had a previous back surgery, 01/10, patienr of Dr toney. Historical: - Allergies: SULFA (SULFONAMIDES); Boniva; Fosamax; Reclast; - Home Meds: 1. Advair Diskus 250-50 mcg/dose inhalation dsdv 1 puff 2 times per day approximately 12 hours apart 2. Allopurinol Oral 3. Albuterol Inhl 4. Zantac Oral 5. Zyrtec Oral 6. Calcium Lactate Oral 7. Mesnex oral 8. Vitamin E Oral 9. glucosamine-chondroitin oral 10. [place] Oral 11. Prednisone Oral 12. Prolia subcutaneous 13. Lorazepam Oral 14. Methocarbamol Oral - PMHx: GOUT; ASTHMA; ANXIETY; - PSHx: CHOLECYSECTOMY; back; - Tetanus: < 10 years. - Ebola Screening: : Patient denies exposure to infectious person. Patient denies travel to an Ebola-affected area in the 21 days before illness onset. . - Immunization history: Pneumococcal vaccine status is unknown. - Social history: Smoking status: Patient states former smoker of tobacco. Patient uses alcohol Patient/guardian denies using marijuana. ROS: 09:50 Back: Positive for decreased range of motion, pain at rest, pain with movement, tl1 radiated pain, of the lumbar area. Exam: 09:50 Head/Face: Normocephalic, atraumatic. tl1 Eyes: Pupils equal round and reactive to light, extra-ocular motions intact. Lids and lashes normal. Conjunctiva and sclera are non-icteric and not injected. Cornea within normal limits. Periorbital areas with no swelling, redness, or edema. ENT: Nares patent. No nasal discharge, no septal abnormalities noted. Tympanic membranes are normal and external auditory canals are clear. Oropharynx with no redness, swelling, or masses, exudates, or evidence of obstruction, uvula midline. Mucous membranes moist. 09:50 Neck: Trachea midline, no thyromegaly or masses palpated, and no cervical tl1 lymphadenopathy. Supple, full range of motion without nuchal rigidity, or vertebral point tenderness. No Meningismus. Cardiovascular: Regular rate and rhythm with a normal S1 and S2. No gallops, murmurs, or rubs. Normal PMI, no JVD. No pulse deficits. 09:50 Respiratory: Lungs have equal breath sounds bilaterally, clear to auscultation and percussion. No rales, rhonchi or wheezes noted. No increased work of breathing, no retractions or nasal flaring. 09:50 Constitutional: The patient appears alert, awake, well developed, well hydrated, well groomed, well nourished, in obvious distress, moderately distressed, in obvious pain, restless, uncomfortable. 09:50 Back: pain, is absent, that is severe, of the lumbar area, ROM is CVA tenderness, is absent, vertebral tenderness, is not appreciated. 09:50 Neuro: Orientation: is normal, Mentation: is normal, Memory: is normal, Motor: moves all fours, Sensation: is normal, Gait: not tested. Vital Signs: 07:48 BP 123 / 76 (auto/); Pulse 92; Pulse Ox 92% on R/A; Pain 10/10; st 07:49 Pulse Ox 92% ; st 08:19 BP 126 / 63 (auto/); Pulse 87; st 08:24 Pulse Ox 91% ; st 08:30 BP 123 / 61 (auto/); Pulse 88; st 08:34 Pulse Ox 92% ; st MDM: 07:50 Patient medically screened. tl1 09:54 Data reviewed: vital signs, nurses notes, old medical records, and as a result, I will tl1 *Transfer Patient. Counseling: I had a detailed discussion with the patient and/or guardian regarding: the historical points, exam findings, and any diagnostic results supporting the discharge/admit diagnosis, radiology results, the need to transfer to another facility. Medication response: The patient's symptoms have improved, Dilaudid. Physician consultation: SABINA Mishra was called at 09:00, was contacted at 09:10, regarding patient's condition, TRANSFER, and will see patient in inpatient room. Dispensed Medications: 08:19 Drug: Dilaudid 1 mg; Route: IVP; Site: left hand; st 09:50 Follow up: Response: Pain is decreased st 08:19 Drug: Zofran 4 mg; Route: IVP; Infused Over: 2 mins; Site: left hand; st 09:50 Follow up: Response: Nausea is decreased st 09:23 Drug: Zofran 4 mg; Route: IVP; Infused Over: 2 mins; Site: left hand; st 09:50 Follow up: Response: Nausea unchanged st 09:50 Drug: Dilaudid 1 mg; Route: IVP; Site: left hand; st 09:50 Follow up: Response: Medication administered at discharge. st 09:50 Drug: Phenergan 12.5 mg; Route: IVP; Site: left hand; st 09:51 Follow up: Response: Medication administered at discharge. st Signatures: Yenny Saleh, RN Arnie Ordoñez MD MD tl1
== END 2017-03-29 10:04 | disposition short-term general hospital (02) ==
LOC: ER 07:41
DX: M54.5 Low back pain (principal); M54.16 Radiculopathy, lumbar region; G89.29 Other chronic pain; Z98.890 Other specified postprocedural states; M51.86 Other intervertebral disc disorders, lumbar region; Z79.899 Other long term (current) drug therapy; Z74.3 Need for continuous supervision
CPT/HCPCS: 96374; 96375; 96376; 99283; 99285; A0425; A0427; J1170; J2405; J2550; J3010